=== PATIENT | male | born 1965 | race Caucasian/White ===

== ENCOUNTER → 2016-10-15 | Outpatient (CLI) | payer BC ==
[~2016-10-15] MED LIST: HYDR-3456 PO
== END ==
LOC: CARD 14:58
PROVIDERS: ATTEND Family Medicine
DX: R07.9 Chest pain, unspecified (principal)
CPT/HCPCS: 36415; 84484; 93005

== ENCOUNTER → 2016-12-30 | Outpatient (CLI) | payer BC | LOC: CARD 13:43 | PROVIDERS: ATTEND Internal Medicine Interventional Cardiology | DX: I10 Essential (primary) hypertension (principal); R07.9 Chest pain, unspecified; R06.02 Shortness of breath; M79.89 Other specified soft tissue disorders | CPT/HCPCS: 93306 ==

== ENCOUNTER → 2017-01-13 | Outpatient (CLI) | payer BC ==
[~2017-01-13] VITALS: Ht 175.3 cm; Wt 133.8 kg
[~2017-01-13] MED LIST changes: +CATHETER FLUSH 10 ML SYR IV PRN; +REGADENOSON 0.4 MG/5 ML SYR (LEXISCAN) IV ONE
--- NOTE | 2017-01-15 01:08 | STRESS TEST ---
DATE OF SERVICE: 01/13/2017 PHARMACOLOGICAL NUCLEAR STRESS TEST REPORT PRIMARY PHYSICIAN: Dr. José Miguel Najera. PERFORMING PHYSICIAN: Dr. Clinton Mayorga. INDICATION: Chest pain, hypertension, shortness of breath, swelling of both lower extremities. PROCEDURE IN DETAIL: The patient was brought to the stress lab after informed consent was taken. A stress test was performed according to the standard Lexiscan protocol. A 0.4 mg of IV Lexiscan was given. Low-grade exercise was performed. Baseline EKG showed sinus rhythm at 79 BPM. Blood pressure was 140/91 mmHg. Maximum heart rate was 109 BPM and blood pressure was 172/94 mmHg. There was no chest pain, EKG changes or arrhythmias noted during Lexiscan infusion. 10.21 mCi of Myoview were given for rest imaging and 30.8 mCi of Myoview were given for stress imaging. Myocardial perfusion imaging showed a TID of 1.09, EF of 65%. There is a mild small fixed apical defect. Clinical correlation is recommended. IMPRESSION/CONCLUSION: 1. Pharmacological stress test is negative for ischemia. 2. There is a mild small apical defect, which is likely an artifact considering normal wall motion. However, clinical correlation is recommended. 3. Normal ejection fraction with no wall motion abnormalities. Job ID: [id number] DocumentID: [id number] Dictated Date: 01/14/2017 12:08:59 Software Quality Assurance Analyst Date: 01/14/2017 15:26:58 Dictated By: BEULAH MAYORGA MD
== END ==
LOC: CARD 07:51
PROVIDERS: ATTEND Internal Medicine Interventional Cardiology
DX: R07.9 Chest pain, unspecified (principal); I10 Essential (primary) hypertension; R06.02 Shortness of breath; M79.89 Other specified soft tissue disorders
CPT/HCPCS: 78452; 93017

== ENCOUNTER 2017-01-20 07:10 | Day surgery (SDC) | payer BC ==
[~2017-01-20] VITALS: Ht 175.3 cm; Wt 130.2 kg
[2017-01-20] VITALS (18 sets, daily range): BP systolic 109–138; BP diastolic 72–103
[~2017-01-20 07:10] MED LIST changes: -CATHETER FLUSH 10 ML SYR IV PRN; +HEParin 1000 UNIT/ML (10ML VIAL) FOR BOLUS ONE; +NS IV 1000 ML 3,000 ML ONE; -REGADENOSON 0.4 MG/5 ML SYR (LEXISCAN) IV ONE
--- OUTSIDE RECORDS SUMMARY | 2017-01-20 07:15 | XMS REPORT | Continuity of Care Document ---
Author Author [facility] Organization [facility] Address Unknown Phone Unavailable Allergies Active Description Code Type Severity Reaction Onset Reported/Identified Relationship to Patient Clinical Status Yes codeine [id number] Drug Allergy Severe HIVES 04/11/2013 Medications Problems Date Dx Coded Attending Type Code Diagnosis Diagnosed By 11/03/2012 JOSE SHAW, CONCETTA R Ot 327.23 OBSTRUCTIVE SLEEP APNEA (ADULT) (PEDIATR 04/11/2013 CHAVA SHAW, QASIM A Ot 574.20 CHOLELITHIASIS NOS 04/11/2013 CHAVA SHAW, QASIM A Ot 789.03 ABDOMINAL PAIN, RIGHT LOWER QUADRANT 02/05/2014 CHAVA SHAW, QASIM A Ot 571.8 02/05/2014 HCAVA SHAW, QASIM A Ot 789.00 02/05/2014 CHAVA SHAW, QASIM A Ot 789.00 08/21/2014 CHAVA SHAW, QASIM A Ot 571.8 08/21/2014 CHAVA SHAW, QASIM A Ot 789.00 08/21/2014 CHAVA SHAW, QASIM A Ot 789.00 08/22/2014 CHAVA SHAW, QASIM A Ot 571.8 08/22/2014 CHAVA SHAW, QASIM A Ot 789.00 08/22/2014 CHAVA SHAW, QASIM A Ot 789.00 09/24/2014 JOSE SHAW, CONCETTA R Ot 780.79 09/24/2014 JOSE SHAW, CONCETTA R Ot 784.0 10/04/2014 JOSE SHAW, CONCETTA R Ot 780.2 10/11/2014 CHAVA SHAW, QASIM A Ot 571.8 10/11/2014 CHAVA SHAW, QASIM A Ot 789.00 10/11/2014 CHAVA SHAW, QASIM A Ot 789.00 10/11/2014 JOSE SHAW, CONCETTA R Ot 780.79 10/11/2014 JOSE SHAW, CONCETTA R Ot 784.0 10/11/2014 JOSE SHAW, CONCETTA R Ot 780.2 11/28/2014 CHACE SHAW, SILVINA A Ot 723.1 11/28/2014 CHACE SHAW, SILVINA A Ot 729.5 11/28/2014 CHACE SHAW, SILVINA A Ot 780.4 01/31/2015 CHAVA SHAW, QASIM A Ot 571.8 01/31/2015 CHAVA SHAW, QASIM A Ot 789.00 01/31/2015 CHAVA SHAW, QASIM A Ot 789.00 01/31/2015 JOSE SHAW, CONCETTA R Ot 780.79 01/31/2015 JOSE SHAW, CONCETTA R Ot 784.0 01/31/2015 JOSE SHAW, CONCETTA R Ot 780.2 01/31/2015 CHACE SHAW, SILVINA A Ot 723.1 01/31/2015 CHACE SHAW, SILVINA A Ot 729.5 01/31/2015 CHAEC SHAW, SILVINA A Ot 780.4 06/09/2015 CHAVA SHAW, QASIM A Ot 571.8 06/09/2015 CHAVA SHAW, QASIM A Ot 789.00 06/09/2015 CHAVA SHAW, QASIM A Ot 789.00 06/09/2015 JOSE SHAW, CONCETTA R Ot 780.79 06/09/2015 JOSE SHAW, CONCETTA R Ot 784.0 06/09/2015 JOSE SHAW, CONCETTA R Ot 780.2 06/09/2015 CHACE SHAW, SILVINA A Ot 723.1 06/09/2015 CHACE SHAW, SILVINA A Ot 729.5 06/09/2015 CHACE SHAW, SILVINA A Ot 780.4 07/18/2015 CHAVA SHAW, QASIM A Ot 571.8 CHRONIC LIVER DIS NEC 07/18/2015 CHAVA SHAW, QASIM A Ot 789.00 ABDOMINAL PAIN, UNSPECIFIED SITE 07/18/2015 CHAVA SHAW, QASIM A Ot 789.00 ABDOMINAL PAIN, UNSPECIFIED SITE 07/18/2015 JOSE SHAW, CONCETTA R Ot 780.79 OTH MALAISE FATIGUE 07/18/2015 JOSE SHAW, CONCETTA R Ot 784.0 HEADACHE 07/18/2015 JOSE SHAW, CONCETTA R Ot 780.2 SYNCOPE AND COLLAPSE 07/18/2015 CHACE SHAW, SILVINA A Ot 723.1 CERVICALGIA 07/18/2015 SILVINA MAS MD A Ot 729.5 PAIN IN LIMB 07/18/2015 SILVINA MAS MD A Ot 780.4 DIZZINESS AND GIDDINESS 09/08/2015 CHAVA SHAW, QASIM A Ot 571.8 CHRONIC LIVER DIS NEC 09/08/2015 BARBARA LARSEN MDNT A Ot 789.00 ABDOMINAL PAIN, UNSPECIFIED SITE 09/08/2015 CHAVA SHAW, QASIM A Ot 789.00 ABDOMINAL PAIN, UNSPECIFIED SITE 09/08/2015 ACE GARCIA MDYD R Ot 780.79 OTH MALAISE FATIGUE 09/08/2015 ACE GARCIA MDYD R Ot 784.0 HEADACHE 09/08/2015 ACE GARCIA MDYD R Ot 780.2 SYNCOPE AND COLLAPSE 09/08/2015 SILVINA MAS MD A Ot 723.1 CERVICALGIA 09/08/2015 SILVINA MAS MD A Ot 729.5 PAIN IN LIMB 09/08/2015 SILVINA MAS MD A Ot 780.4 DIZZINESS AND GIDDINESS 10/15/2016 QASIM LARSEN MD A Ot 571.8 CHRONIC LIVER DIS NEC 10/15/2016 QASIM LARSEN MD A Ot 789.00 ABDOMINAL PAIN, UNSPECIFIED SITE 10/15/2016 QASIM LARSEN MD A Ot 789.00 ABDOMINAL PAIN, UNSPECIFIED SITE 10/15/2016 CONCETTA GARCIA MD R Ot 780.79 OTH MALAISE FATIGUE 10/15/2016 ACE GARCIA MDYD R Ot 784.0 HEADACHE 10/15/2016 CONCETTA GARCIA MD R Ot 780.2 SYNCOPE AND COLLAPSE 10/15/2016 SILVINA MAS MD A Ot 723.1 CERVICALGIA 10/15/2016 SILVINA MAS MD A Ot 729.5 PAIN IN LIMB 10/15/2016 SILVINA MAS MD A Ot 780.4 DIZZINESS AND GIDDINESS 10/27/2016 FATOU SHAW, MARY C Ot R07.9 CHEST PAIN, UNSPECIFIED 12/21/2016 QASIM LARSEN MD A Ot 571.8 CHRONIC LIVER DIS NEC 12/21/2016 QASIM LARSEN MD A Ot 789.00 ABDOMINAL PAIN, UNSPECIFIED SITE 12/21/2016 QASIM LARSEN MD A Ot 789.00 ABDOMINAL PAIN, UNSPECIFIED SITE 12/21/2016 CONCETTA GARCIA MD Ot 780.79 OTH MALAISE FATIGUE 12/21/2016 CONCETTA GARCIA MD Ot 784.0 HEADACHE 12/21/2016 CONCETTA GARCIA MD Ot 780.2 SYNCOPE AND COLLAPSE 12/21/2016 SILVINA MAS MD Ot 723.1 CERVICALGIA 12/21/2016 SILVINA MAS MD Ot 729.5 PAIN IN LIMB 12/21/2016 SILVINA MAS MD Ot 780.4 DIZZINESS AND GIDDINESS 12/21/2016 MARY LAINEZ MD Ot R07.9 CHEST PAIN, UNSPECIFIED Procedures Results Encounters ACCT No. Visit Date/Time Discharge Status Pt. Type Provider Facility Loc./Unit Complaint [id number] 12/30/2016 13:43:00 2016 23:59:59 CLS Outpatient Leobardo NEWTON MD [facility] CARD R07.9 [id number] 12/10/2016 13:00:00 2016 23:59:59 CLS Preadmit Leobardo NEWTON MD [facility] CARD R07.9 [id number] 10/15/2016 14:58:00 2016 23:59:59 CLS Outpatient MARY LAINEZ MD [facility] CARD CHEST PAIN [id number] 11/13/2014 14:07:00 2014 23:59:59 CLS Outpatient SILVINA MAS MD [facility] RAD NECK PAIN AND NERVE IMPINGMENT [id number] 09/18/2014 07:21:00 2014 23:59:59 CLS Outpatient CONCETTA GARCIA MD [facility] CARD SYNCOPE,BLACKOUTS [id number] 08/22/2014 07:39:00 2014 23:59:59 CLS Outpatient CONCETTA GARCIA MD [facility] RAD PERSISTENT CAMACHO FRONTAL FATIGUE [id number] 04/17/2013 09:31:00 2013 23:59:59 CLS Outpatient QASIM LARSEN MD [facility] RAD ABNORMAL SONO [id number] 04/16/2013 07:30:00 2013 23:59:59 CLS Outpatient QASIM LARSEN MD [facility] RAD ABD PAIN [id number] 04/11/2013 19:07:00 2013 21:11:00 DIS Emergency QASIM LARSEN MD [facility] ER R SIDE PAIN [id number] 11/02/2012 20:00:00 2012 07:25:00 DIS Outpatient JOSE SHAW, CONCETTA Escamilla [facility] SLEEP EYAD,HYPERSOMNIA
[2017-01-20 07:51] LABS: MEAN PLATELET VOLUME 10.2 FL (7.4-10.4); RED BLOOD COUNT 5.15 10^6/uL (4.35-5.85); RED CELL DISTRIBUTION WIDTH 13.7 % (10.0-14.5); WHITE BLOOD COUNT 6.6 10^3/uL (4.3-11.0)
[2017-01-20] MEDS: NS IV 1000 ML 1,000 ML IV SCH ×3 (07:57→22:08)
[2017-01-20] MEDS ORDERED: NS IV 1000 ML 1,000 ML IV SCH (08:00)
[2017-01-20 08:08] LABS: ALANINE AMINOTRANSFERASE 60 U/L (0-55); ALBUMIN 4.2 GM/DL (3.2-4.5); ANION GAP 12 MMOL/L (5-14); ASPARTATE AMINO TRANSFERASE 34 U/L (5-34); BILIRUBIN,TOTAL 0.6 MG/DL (0.1-1.0); BLOOD UREA NITROGEN 18 MG/DL (7-18); BUN/CREATININE RATIO 15; CALCIUM 9.4 MG/DL (8.5-10.1); CARBON DIOXIDE 21 MMOL/L (21-32); CHLORIDE 105 MMOL/L (98-107); CHOLESTEROL 198 MG/DL (< 200); CREATININE SERUM 1.18 MG/DL (0.60-1.30); DIRECT LDL 127 MG/DL (1-129); GFR ESTIMATED > 60; GLUCOSE 110 MG/DL (70-105); POTASSIUM 4.3 MMOL/L (3.6-5.0); SODIUM 138 MMOL/L (135-145); TOTAL PROTEIN 7.6 GM/DL (6.4-8.2); TRIGLYCERIDES 332 MG/DL (<150); VLDL CHOLESTEROL 66 MG/DL (5-40)
[2017-01-20 08:09] LABS: PROTHROMBIN TIME PATIENT 13.2 SEC (12.2-14.7)
[2017-01-20] MEDS ORDERED: INFLUENZA TRIvalent 2017-2018 0.5 ML/45 MCG SYR IM ONE (08:15)
[2017-01-20] MEDS ORDERED: MIDAZOLAM 5 MG/5 ML (VERSED) VIAL ONE ×2 (09:39→10:39)
[2017-01-20] MEDS ORDERED: VERAPAMIL 5 MG/2 ML (CALAN) VIAL IV ONE (09:40)
[2017-01-20] MEDS ORDERED: fentaNYL INJECTION 100 MCG/2 ML AMP ONE ×2 (09:40→10:39)
[2017-01-20] MEDS ORDERED: NITROGLYCERIN DRIP 25 MG/D5W 250 ML IV ONE (09:40)
[2017-01-20] MEDS ORDERED: diphenhydrAMINE 50 MG/ML INJ (BENADRYL) ONE (09:40)
[2017-01-20] MEDS ORDERED: ADENOSINE 3 MG/1 ML (ADENOSCAN) 30ML VIAL IV ONE (10:31)
[2017-01-20] MEDS ORDERED: HEParin 1000 UNIT/ML (10ML VIAL) FOR BOLUS ONE (10:35)
[2017-01-20] MEDS ORDERED: CLOPIDOGREL 300 MG (PLAVIX) TABLET PO ONE (10:36)
--- NOTE | 2017-01-20 11:39 | Cardiac Procedure Note-CS/ASA ---
Pre-Procedure Note Pre-Op Procedure Note H&P Reviewed The H&P was reviewed, patient examined and no changes noted. Date H&P Reviewed: Jan 20, 2017 Time H&P Reviewed: 09:30 Conscious Sedation Pre-Proced Time Reviewed: 09:30 ASA Class: 3 Airway Mallampati Classification: (king salmon appropriate class) I. II. III, IV Lungs Heart ASA score ASA 1: a normal healthy patient ASA 2: a patient with a mild systemic disease (mid diabetes, controlled hypertension, obesity ASA 3: a patient with a severe systemic disease that limits activity (angina , COPD, prior Myocardial infarction) ASA 4: a patient with an incapacitating disease that is a constant threat to life (CHF, renal failure) ASA 5: a moribund patient not expected to survive 24 hrs. (ruptured aneurysm) ASA 6: a declared brain patient whose organs are being harvested. For emergent operations, add the letter E after the classification Grade 1 Sedation Plan: Analgesia, Amnesia, Plan communicated to team members, Discussed options with patient/fam, Discussed risks with patient/fam Note The patient is an appropriate candidate to undergo the planned procedure, sedation, and anesthesia. The patient immediately re-assessed prior to indication. Leobardo NEWTON MD Jan 20, 2017 11:39 am
--- NOTE | 2017-01-20 11:41 | Cardiology Post Procedure Note ---
Post-Procedure Note Physician (s)/Stacker Attendant (s) Physician Leobardo NEWTON MD Pre-Procedure Diagnosis Pre-Procedure Diagnosis: unstable angina, abnormal nuclear stress test. Post-Procedure Note Procedure Start Date: Jan 20, 2017 Procedure Start Time: 09:30 Name of Procedure: coronary angiography, left heart catheterization, FFR of the RCA, PCI to OM1. Findings/Procedure Note moderate distal RCA/ostial PDA lesion. FFR 0.96; PCI deferred. Severe mid/distal OM1 lesion, treated with drug-eluting stent 2.25x18 mm Xience Alpine. mild diffuse disease in the mid distal LAD. Normal LV function, LVEDP 22 suggesting mild diastolic dysfunction. Anesthesia Type: Conscious Sedation Estimated blood loss (mL): 20 mL Contrast Amount: 218 mL Post-Procedure Diagnosis Post-operative diagnosis: PCI with drug-eluting stent to OM1, FFR to RCA. Leobardo NEWTON MD Jan 20, 2017 11:41 am
[2017-01-20] MEDS ORDERED: PATIENT MAY USE OWN MEDS, ALL PO SCH (11:45)
[2017-01-20] MEDS ORDERED: ASPI-983 PO (13:48)
[2017-01-20] MEDS ORDERED: LOSA100T28 PO (13:48)
[2017-01-20] MEDS: lisINopril 5 MG (PRINIVIL) TABLET PO SCH (14:58)
[2017-01-20] MEDS ORDERED: ATORVASTATIN 80 MG (LIPITOR) TABLET PO SCH (21:00)
--- NOTE | 2017-01-20 21:48 | CARDIAC CATHETERIZATION ---
DATE OF SERVICE: 01/20/2017 CORONARY ANGIOGRAPHY AND PCI REPORT PERFORMING PHYSICIAN: Dr. Clinton Mayorga. INDICATION: Unstable angina, abnormal nuclear stress test. PREOPERATIVE DIAGNOSIS: Unstable angina, abnormal nuclear stress test. POSTOPERATIVE DIAGNOSES: 1. Severe obtuse marginal artery disease treated with a drug-eluting stent. 2. Moderate RCA disease negative by FFR. HISTORY: The patient is a 51-year-old gentleman who has history of hyperlipidemia, hypertension and family history. He presents with recurrent chest pain episodes. A nuclear stress test was performed, which was abnormal. He continued to have recurrent chest pain episodes, which were worsening in intensity. The working diagnosis was unstable angina. He was therefore consented for coronary angiography. PROCEDURE PERFORMED: 1. Coronary angiography. 2. Left heart catheterization. 3. FFR to the RCA. 4. PCI to OM1. SPECIMENS: None. COMPLICATIONS: None. CONTRAST: 218 mL of Omnipaque. ESTIMATED BLOOD LOSS: 20 mL. ANTICOAGULATION: IV heparin. FLUOROSCOPY TIME: 18 minutes. FLUOROSCOPY DOSE: 2264 mGy. PROCEDURE IN DETAIL: The patient was brought to the labor relations specialist after informed consent was taken. All the risks and complications were explained in detail. The patient was draped and prepped in the usual sterile fashion. Access was gained in the right radial artery with a 6-Greek sheath. RCA was engaged with a Winston catheter, left heart catheterization was performed with the Winston catheter. Left coronary system was engaged with a JL4 catheter. FINDINGS: 1. RCA has mild proximal disease. There is a moderate distal RCA/ostial PDA lesion. Stenosis severity is around 50%. 2. Left heart catheterization, LV pressure 107/10 mmHg. LVEDP 22 mmHg. Aortic pressure 107/73 mmHg. Normal LV function. No regional wall motion abnormalities. No gradient across the aortic valve. 3. Patent left main. 4. Mild ostial left circumflex artery disease. Stenosis severity 10-20%. Severe 80-90% stenosis in mid to distal OM1. 5. LAD: There is no significant disease in the proximal LAD. However, there is mild diffuse disease in the mid and distal LAD. The LAD is a transapical vessel. There is a small diagonal artery, which has moderate ostial disease. RECOMMENDATION: 1. FFR to RCA is recommended. 2. PCI to mid/distal OM is recommended. INTERVENTION DETAILS: We gave 5000 of IV heparin, 3000 was given later, total heparin was 8000 units. ACT was over 230 seconds. A 600 mg of bolus Plavix was given. We took a JR4 guide catheter and a pressure wire as guidewire. Baseline FFR was 0.99. Adenosine infusion was started at 140 mcg/kg/minute. Infusion was continued for 2-1/2 minutes. FFR 0.96 was which is normal; therefore, PCI was deferred. The wire was taken out and post-angiography did not reveal any vascular complication. We then took a JL4 guide catheter and a Whisper guidewire. The lesion was crossed with a Whisper wire. We first took a 2.0 x 15 semi-compliant balloon and did balloon angioplasty at 10 atmospheres for 32 seconds. We also gave 100 mcg of intracoronary nitroglycerin. There was no significant improvement in the stenosis severity. We therefore took Xience Alpine 2.25 x 18 drug-eluting stent. It was deployed at 10 atmospheres for 60 seconds. We then took the stent balloon a little bit back and postdilated the proximal and mid section for 14 atmospheres for 19 seconds. The balloon was taken out and angiography still showed the need of postdilatation. We therefore took a NC Quantum 2.5 x 15 balloon and did a postdilatation at 16 atmospheres for 45 seconds. This showed excellent results with no significant residual stenosis. ARIANA flow was ARIANA 2 to 2-1/2 in the beginning and ARIANA 3 at the end. The patient tolerated the procedure well, did not have any complication. IMPRESSION/CONCLUSION: 1. PCI to the OM1 with drug-eluting stent. FFR of the RCA was normal. 2. Aspirin and Plavix for at least a year. Start lisinopril and beta carlos. 3. High dose statin. 4. EKG, electrolytes and CBC in the morning. Hopefully, the patient will be discharged in the morning to follow up in the office in 2-3 weeks. Job ID: [id number] DocumentID: [id number] Dictated Date: 01/20/2017 12:08:01 Sales Service Route Manager Date: 01/20/2017 13:01:42 Dictated By: BEULAH MAYORGA MD
[2017-01-21] VITALS: BP 104/67
[2017-01-21 01:00] VITALS: BP 99/58
[2017-01-21 04:00] VITALS: BP 96/65
[2017-01-21 05:32] LABS: MEAN PLATELET VOLUME 10.1 FL (7.4-10.4); RED BLOOD COUNT 5.08 10^6/uL (4.35-5.85); RED CELL DISTRIBUTION WIDTH 13.8 % (10.0-14.5); WHITE BLOOD COUNT 7.5 10^3/uL (4.3-11.0)
[2017-01-21 05:53] LABS: ANION GAP 9 MMOL/L (5-14); BLOOD UREA NITROGEN 11 MG/DL (7-18); BUN/CREATININE RATIO 10; CARBON DIOXIDE 22 MMOL/L (21-32); CHLORIDE 109 MMOL/L (98-107); CREATININE SERUM 1.06 MG/DL (0.60-1.30); GFR ESTIMATED > 60; GLUCOSE 104 MG/DL (70-105); POTASSIUM 4.3 MMOL/L (3.6-5.0); SODIUM 140 MMOL/L (135-145)
[2017-01-21 08:00] VITALS: BP 115/77
[2017-01-21] MEDS: NS IV 1000 ML 1,000 ML IV SCH ×2 (08:06)
[2017-01-21] MEDS ORDERED: ASPIRIN E.C. 81 MG (ECOTRIN) TAB PO SCH (09:00)
[2017-01-21] MEDS ORDERED: CLOPIDOGREL 75 MG (PLAVIX) TABLET PO SCH (09:00)
[2017-01-21] MEDS ORDERED: ATOR80TA76 PO (09:24)
[2017-01-21] MEDS ORDERED: METO-387 PO (09:24)
[2017-01-21] MEDS ORDERED: CLOP75TA28 PO (09:24)
--- NOTE | 2017-01-21 09:25 | Discharge Inst-Post CATH ---
Discharge Inst-CATH Post Cardiac Cath D/C Inst Follow Up/Plan in one to [address] Mayorga CARDIAC CATH DISCHARGE INSTRUCTIONS *Hold Metformin for 48 hours post heart cath. ACTIVITY * Go Home directly and rest. * Limit activity of the leg (or wrist if it was used) for 7 days including aerobics, swimming, jogging, bicycling, etc. * Restrict stair-climbing for 7 days if possible, if not, climb up with your non -cath leg, then bring together on the same step. * Avoid lifting, pushing, pulling or excessive movement of the affected extremity for 7 days. * Customary sexual activity may be resumed after 2 days-use caution not to use a position that strains or causes pain to the affected extremity. * No driving for 24 hours. * NO SMOKING. * Avoid straining for bowel movements for 7 days. * Gentle walking on level ground is allowed. * Returning to work will depend on the type of procedure and the results. Your doctor will discuss this with you. CALL YOUR DOCTOR FOR ANY OF THE FOLLOWING: *If bleeding from the puncture site occurs- Apply gentle pressure to site with clean cloth and call your doctor or EMS. * If a knot or lump forms under the skin, increases in size, or causes pain. * If bruising appears to be worsening or moving further down your leg instead of disappearing. * Temperature above 101 F. CARE OF YOUR GROIN INCISION; * Bruising or purple discoloration of the skin near the puncture site is common. * You may shower only, no bathtub bathing for 5 days. Be careful to avoid slipping as your leg may feel stiff. * If a closure device was used on your femoral artery, please see the attached guide regarding care of the device and your leg. * REMOVE the dressing from your groin the next day after your procedure in the shower. CARE OF YOUR WRIST INCISION; * Bruising or purple discoloration of the skin near the puncture site is common. * You may shower. * DO NOT submerge wrist. * Remove dressing in 24 hours. Leobardo MAYORGA MD Jan 21, 2017 9:25 am
--- NOTE | 2017-01-21 09:28 | Cardiology Discharge Summary ---
Diagnosis/Chief Complaint Date of Admission 01/20/2017 Date of Discharge 01/21/2017 Admission Diagnosis unstable angina, abnormal nuclear stress test Final/Discharge Diagnosis PCI with drug-eluting stent to OM1, FFR to RCA Chief Complaint/HPI Chief Complaint/HPI 51-year-old gentleman with hypertension, hyperlipidemia and family history of premature CAD. He presents with recurrent worsening chest pain. pharmacological nuclear stress test was performed which was abnormal. Coronary angiography was recommended. Discharge Summary Procedures coronary angiography, left heart catheterization, PCI with drug-eluting stent to OM1, FFR to RCA normal Discharge Physical Examination normal radial pulse, normal cardiac respiratory exam. Hospital Course stable Pending Labs Laboratory Tests 01/21/17 05:15: White Blood Count 7.5, Red Blood Count 5.08, Hemoglobin 16.0, Hematocrit 47, Mean Corpuscular Volume 92, Mean Corpuscular Hemoglobin 32, Mean Corpuscular Hemoglobin Concent 34, Red Cell Distribution Width 13.8, Platelet Count 213, Mean Platelet Volume 10.1, Sodium Level 140, Potassium Level 4.3, Chloride Level 109, Carbon Dioxide Level 22, Anion Gap 9, Blood Urea Nitrogen 11, Creatinine 1.06, Estimat Glomerular Filtration Rate > 60, BUN/Creatinine Ratio 10, Glucose Level 104, Calcium Level 9.0 Discussion & Recommendations Discussion discussed at length with the patient and family. Medical compliance was emphasized. Healthy living was emphasized. I went over coronary angiography and PCI details again with the patient and . I answered all the questions. Discharge took over 30 minutes to complete. Follow up appt.: with Dr. Mayorga in one to 2 weeks. Dicharge Diet: Cardiac Diet Activity as Tolerated: Yes Home Medications Reviewed patient Home Medication Reconciliation Form Discharge Home Medications: Reviewed and agree with Discharge Medication list on patient's Discharge Instruction sheet Condition at discharge stable Instructions to patient/family in one to 2 weeks with Leobardo Tomlinson MD Jan 21, 2017 9:28 am
[2017-01-21] MEDS: lisINopril 5 MG (PRINIVIL) TABLET PO SCH (09:42)
[2017-01-21 10:30] VITALS: BP 120/68
== END 2017-01-21 11:17 | disposition home or self-care (01) ==
LOC: CATH 07:10 → ICU 12:06 → CATH 01-21 11:17
PROVIDERS: ATTEND Internal Medicine Interventional Cardiology
DX: I25.110 Atherosclerotic heart disease of native coronary artery with unstable angina pectoris (principal); I10 Essential (primary) hypertension; Z79.899 Other long term (current) drug therapy
CPT/HCPCS: 36415; 80048; 80053; 80061; 85027; 85347; 85610; 85730; 87081; 93005; 93458; 93571

== ENCOUNTER 2017-05-28 22:30 | Emergency (ER) | payer BC ==
[~2017-05-28] VITALS: Ht 172.7 cm; Wt 131.5 kg
[~2017-05-28 22:30] MED LIST changes: +ASPI-983 PO; +ATOR80TA76 PO; +CLOP75TA28 PO; -HEParin 1000 UNIT/ML (10ML VIAL) FOR BOLUS ONE; +LOSA100T28 PO; +METO-387 PO; -NS IV 1000 ML 3,000 ML ONE
[2017-05-28 23:00] VITALS: BP 145/85
[2017-05-28] MEDS ORDERED: LACTATED RINGERS 1,000 ML IV ONE (23:12)
[2017-05-28] MEDS ORDERED: RT-ALBUTEROL/IPRATROPIUM 3 ML (DUONEB) VIAL INH ONE (23:15)
[2017-05-28] MEDS ORDERED: ACETAMINOPHEN 500 MG TAB (TYLENOL) PO ONE (23:15)
--- NOTE | 2017-05-28 23:26 | ED Respiratory ---
General Chief Complaint: Cough/Cold/Flu Symptoms Stated Complaint: CONGESTED,COUGH Nursing Triage Note: PT REPORTS COUGH/CONGESTION/FEVER X 1 WEEK. HE STATES HE WAS TX WITH STEROID, Z PACK, AND TESSALON PEARLES BY HIS PCP WITH NO IMPROVEMENT. Source: patient, spouse Exam Limitations: no limitations History of Present Illness Date Seen by Provider: May 28, 2017 Time Seen by Provider: 23:17 Initial Comments Patient resists ER with significant other and a chief complaint that he is had about a week now of upper respiratory cold like symptoms, dry nonproductive cough that he cannot get over. He did a Z-Juan from his doctor as well as had some Tessalon Perles that have not helped much with the cough. He has now allergy to codeine. He is on Plavix for recovery of heart stents. He's not had any chest pain shortness of breath just very weak and tired last 2-3 days not wanting to get out of bed. He's had sweats and chills but no objective fever. He 's been using Tylenol or Motrin his last dose of Tylenol was yesterday. No history of COPD, asthma or smoking however his significant other does smoke. Allergies and Home Medications Allergies Coded Allergies: codeine (Verified Allergy, Severe, HIVES, 04/11/13) Home Medications Aspirin 81 Mg Tablet.dr, 81 MG PO DAILY, (Reported) Atorvastatin Calcium 80 Mg Tablet, 40 MG PO HS Prescribed by: Leobardo NEWTON on 01/21/17923 Clopidogrel Bisulfate 75 Mg Tablet, 75 MG PO DAILY Prescribed by: Leobardo NEWTON on 01/21/17923 Losartan Potassium 100 Mg Tablet, 100 MG PO DAILY, (Reported) Metoprolol Succinate 25 Mg Tab.er.24h, 50 MG PO DAILY Prescribed by: Leobardo NEWTON on 01/21/17923 Patient Home Medication List Home Medication List Reviewed: Yes Constitutional: chills, diaphoresis, No fever, malaise, weakness EENTM: ear pain (left), No hearing loss, No blurred vision, No double vision Respiratory: cough, No phlegm, No short of breath, wheezing Cardiovascular: No chest pain, No palpitations Gastrointestinal: No abdominal pain, No constipation, No diarrhea, No nausea Genitourinary: No discharge, No dysuria Past Yjwuvdo-Sqsfeb-Szrqqm Hx Patient Social History Alcohol Use: Occasionally Uses Recreational Drug Use: No Smoking Status: Never a Smoker 2nd Hand Smoke Exposure: Yes Recent Foreign Travel: No Contact w/Someone Who Travel: No Recent Infectious Disease Expo: No Surgeries History of Surgeries: Yes (HERNIA X2, ESOPHAGUS STRETCHING) Surgeries: Orthopedic Respiratory History of Respiratory Disorde: Yes (CPAP) Respiratory Disorders: Sleep Apnea Cardiovascular History of Cardiac Disorders: Yes (STENTS) Cardiac Disorders: High Cholesterol, Hypertension Neurological History of Neurological Disord: No Gastrointestinal History of Gastrointestinal Di: Yes Gastrointestinal Disorders: Gastroesophageal Reflux Musculoskeletal History of Musculoskeletal Dis: No Endocrine History of Endocrine Disorders: No Cancer History of Cancer: No Psychosocial History of Psychiatric Problem: No Integumentary History of Skin or Integumenta: No Blood Transfusions History of Blood Disorders: No Adverse Reaction to a Blood Tr: No Physical Exam Vital Signs Vital Signs - First Documented 05/28/17 23:00 Temp 97.5 Pulse 70 Resp 16 B/P (MAP) 145/85 (105) Pulse Ox 97 O2 Delivery Room Air Capillary Refill : Less Than 3 Seconds General Appearance: WD/WN, mild distress Eyes: Bilateral Eye Normal Inspection, Bilateral Eye PERRL, Bilateral Eye EOMI HEENT: PERRL/EOMI, normal ENT inspection, pharynx normal, TM abnormal (R) (dull , opaque, nonerythematous, nontender with mucoid effusion), TM abnormal (L) ( without exudate sure his ears were mixed up) Respiratory: chest non-tender, no respiratory distress, no accessory muscle use , wheezing (left side predominantly) Cardiovascular: normal peripheral pulses, no edema Gastrointestinal: normal bowel sounds, non tender, soft Extremities: no calf tenderness, normal capillary refill Neurologic/Psychiatric: alert, oriented x 3 Skin: normal color, warm/dry Progress/Results/Core Measures Suspected Sepsis Recent Fever Within 48 Hours: No Infection Criteria Present: None New/Unexplained Altered Menta: No Sepsis Screen: No Definite Risk Sepsis Diagnosis: SIRS Temperature:97.5 Pulse: 70 Respiratory Rate: 16 Laboratory Tests 05/28/17 23:20: White Blood Count 5.2 Blood Pressure 145 /85 Mean: 105 Laboratory Tests 05/28/17 23:20: Creatinine 1.06, Platelet Count 190, Total Bilirubin 0.4 Results/Orders Lab Results Laboratory Tests Test 05/28/17 23:20 Range/Units White Blood Count 5.2 4.3-11.0 10^3/uL Red Blood Count 4.92 4.35-5.85 10^6/uL Hemoglobin 15.6 13.3-17.7 G/DL Hematocrit 44 40-54 % Mean Corpuscular Volume 89 80-99 FL Mean Corpuscular Hemoglobin 32 25-34 PG Mean Corpuscular Hemoglobin Concent 36 32-36 G/DL Red Cell Distribution Width 13.7 10.0-14.5 % Platelet Count 190 130-400 10^3/uL Mean Platelet Volume 10.2 7.4-10.4 FL Neutrophils (%) (Auto) 61 42-75 % Lymphocytes (%) (Auto) 24 12-44 % Monocytes (%) (Auto) 15 H 0-12 % Eosinophils (%) (Auto) 1 0-10 % Basophils (%) (Auto) 0 0-10 % Neutrophils # (Auto) 3.2 1.8-7.8 X 10^3 Lymphocytes # (Auto) 1.2 1.0-4.0 X 10^3 Monocytes # (Auto) 0.8 0.0-1.0 X 10^3 Eosinophils # (Auto) 0.0 0.0-0.3 10^3/uL Basophils # (Auto) 0.0 0.0-0.1 10^3/uL Sodium Level 138 135-145 MMOL/L Potassium Level 3.7 3.6-5.0 MMOL/L Chloride Level 108 H 98-107 MMOL/L Carbon Dioxide Level 20 L 21-32 MMOL/L Anion Gap 10 5-14 MMOL/L Blood Urea Nitrogen 13 7-18 MG/DL Creatinine 1.06 0.60-1.30 MG/DL Estimat Glomerular Filtration Rate > 60 BUN/Creatinine Ratio 12 Glucose Level 101 70-105 MG/DL Calcium Level 8.6 8.5-10.1 MG/DL Total Bilirubin 0.4 0.1-1.0 MG/DL Aspartate Amino Transf (AST/SGOT) 22 5-34 U/L Alanine Aminotransferase (ALT/SGPT) 51 0-55 U/L Alkaline Phosphatase 52 40-136 U/L C-Reactive Protein High Sensitivity 0.96 H 0.00-0.50 MG/DL Total Protein 6.2 L 6.4-8.2 GM/DL Albumin 3.6 3.2-4.5 GM/DL Micro Results Microbiology 05/28/17 Influenza Types A,B Antigen (ROVERTO) - Final, Complete My Orders Orders - [facility] Cbc With Automated Diff (05/28/17 23:12) Comprehensive Metabolic Panel (05/28/17 23:12) Hs C Reactive Protein (05/28/17 23:12) Influenza A And B Antigens (05/28/17 23:12) Albuterol/Ipra Inhalation Soln (Duoneb I (05/28/17 23:15) Saline Lock/Iv-Start (05/28/17 23:12) Lactated Ringers (Lr 1000 Ml Iv Solution (05/28/17 23:12) Chest Pa/Lat (2 View) (05/28/17 23:12) Svn Sm Volume Nebulizer Rt-Rfs (05/28/17 23:12) Acetaminophen Tablet (Tylenol Tablet) (05/28/17 23:15) Medications Given in ED Current Medications Medications Dose Ordered Sig/Shruthi Route Start Time Stop Time Status Last Admin Dose Admin Acetaminophen 1,000 mg ONCE ONCE PO 05/28/17 23:15 05/28/17 23:21 DC 05/28/17 23:40 1,000 MG Albuterol/ Ipratropium 3 ml ONCE ONCE INH 05/28/17 23:15 05/28/17 23:21 DC 05/28/17 23:35 3 ML Lactated Ringer's 1,000 ml @ 0 mls/hr Q0M ONCE IV 05/28/17 23:12 05/28/17 23:21 DC 05/28/17 23:40 0 MLS/HR Vital Signs/I&O Vital Sign - Last 12Hours 05/28/17 05/28/17 05/28/17 23:00 23:00 23:35 Temp 97.5 Pulse 70 Resp 16 B/P (MAP) 145/85 (105) Pulse Ox 97 97 O2 Delivery Room Air Room Air Room Air Capillary Refill : Less Than 3 Seconds Blood Pressure Mean: 105 Progress Note #1: Time: 23:25 Progress Note Coughing may be due to his wheezing and bronchospasm. Differential includes pneumonia versus bronchitis versus influenza. Progress Note #2: Time: 00:45 Progress Note Patient has influenza and a lot of wheezing and reactive airway disease with questionable infiltrate on chest x-ray. He has already had azithromycin which he just completed so we will go ahead and add some Omnicef to catch the more common organisms might be causing a pneumonia. He is outside the window for Tamiflu. We will send some albuterol pharmacy since he Cipriano has a nebulizer that his uses at home. Diagnostic Imaging Diagonstic Imaging: Xray (2v) Plain Films/CT/US/NM/MRI: chest Comments Questionable subtle left lower lobe infiltrate. Reviewed: Reviewed by Me Departure Impression Impression: Primary Impression: Influenza Additional Impression: Pneumonia Qualified Codes: J18.1 - Lobar pneumonia, unspecified organism Disposition: HOME, SELF-CARE Condition: Improved Departure-Patient Inst. Decision time for Depature: 00:46 Referrals: MARY LAINEZ MD (PCP/Family) Primary Care Physician Patient Instructions: Flu, Adult (DC) Add. Discharge Instructions: Use the albuterol every 4 hours if you're having shortness of breath, wheezing, coughing fits. You can also use the other medications that were prescribed you. In addition start the Omnicef one capsule twice a day for 10 days. Follow-up with your primary care physician if you're not feeling improvement towards the end of the Omnicef. Wear a mask if you have to go in to public. Use ibuprofen 800 mg every 8 hours and Tylenol 1000 mg every 6 hours for body aches, chills, fever. All discharge instructions reviewed with patient and/or family. Voiced understanding. Scripts Albuterol Sulfate (Albuterol Sulfate) 2.5 Mg/3 Ml Vial.neb 2.5 MG IH Q4H Y for SHORTNESS OF BREATH, #60 EA 0 Refills Prov: [facility] 05/29/17 Cefdinir (Cefdinir) 300 Mg Capsule 300 MG PO BID for 10 Days, #20 CAP 0 Refills Prov: [facility] 05/29/17 Work/School Note: Work Release Form Date Seen in the Emergency Department: May 29, 2017 Return to Work: Jun 06, 2017 Restrictions: No Restrictions Copy Copies To 1: MARY LAINEZ MD, TITUS J May 28, 2017 23:26
[2017-05-28 23:34] LABS: BASOPHILS % (AUTO) 0 % (0-10); EOSINOPHILS % (AUTO) 1 % (0-10); HEMATOCRIT 44 % (40-54); HEMOGLOBIN 15.6 G/DL (13.3-17.7); LYMPHOCYTES # (AUTO) 1.2 X 10^3 (1.0-4.0); LYMPHOCYTES % (AUTO) 24 % (12-44); MEAN CORPUSCULAR HEMOGLOBIN 32 PG (25-34); MEAN CORPUSCULAR HGB CONC 36 G/DL (32-36); MEAN CORPUSCULAR VOLUME 89 FL (80-99); MEAN PLATELET VOLUME 10.2 FL (7.4-10.4); MONOCYTES # (AUTO) 0.8 X 10^3 (0.0-1.0); MONOCYTES % (AUTO) 15 % (0-12); NEUTROPHILS # (AUTO) 3.2 X 10^3 (1.8-7.8); NEUTROPHILS % (AUTO) 61 % (42-75); PLATELET COUNT 190 10^3/uL (130-400); RED BLOOD COUNT 4.92 10^6/uL (4.35-5.85); RED CELL DISTRIBUTION WIDTH 13.7 % (10.0-14.5); WHITE BLOOD COUNT 5.2 10^3/uL (4.3-11.0)
[2017-05-28 23:50] LABS: ALANINE AMINOTRANSFERASE 51 U/L (0-55); ALBUMIN 3.6 GM/DL (3.2-4.5); ALKALINE PHOSPHATASE 52 U/L (40-136); BILIRUBIN,TOTAL 0.4 MG/DL (0.1-1.0); BUN/CREATININE RATIO 12; CALCIUM 8.6 MG/DL (8.5-10.1); CARBON DIOXIDE 20 MMOL/L (21-32); CHLORIDE 108 MMOL/L (98-107); CREATININE SERUM 1.06 MG/DL (0.60-1.30); GFR ESTIMATED > 60; GLUCOSE 101 MG/DL (70-105); POTASSIUM 3.7 MMOL/L (3.6-5.0); SODIUM 138 MMOL/L (135-145); TOTAL PROTEIN 6.2 GM/DL (6.4-8.2)
[2017-05-29] MEDS ORDERED: CEFD300C3 PO (00:49)
[2017-05-29] MEDS ORDERED: ALBU2.5V4 IH (00:49)
--- NOTE | 2017-05-29 07:49 | Diagnostic Imaging Report ---
INDICATION: Cough. COMPARISON: None available. TECHNIQUE: 2 radiographs of the chest dated 05/29/2017. FINDINGS: Cardiac silhouette is within normal limits. No significant pulmonary vascular congestion. No focal infiltrate, pleural effusion, or pneumothorax. No acute osseous abnormality. IMPRESSION: No acute cardiopulmonary abnormality. Dictated by: Dictated on workstation # [id number]
== END 2017-05-29 00:49 | disposition home or self-care (01) ==
LOC: EDUNIT# 22:30 → ER 22:31
DX: J11.00 Influenza due to unidentified influenza virus with unspecified type of pneumonia (principal); K21.9 Gastro-esophageal reflux disease without esophagitis; E78.00 Pure hypercholesterolemia, unspecified; I10 Essential (primary) hypertension; G47.30 Sleep apnea, unspecified; Z95.5 Presence of coronary angioplasty implant and graft; Z77.22 Contact with and (suspected) exposure to environmental tobacco smoke (acute) (chronic); Z79.82 Long term (current) use of aspirin; Z88.5 Allergy status to narcotic agent; Z79.02 Long term (current) use of antithrombotics/antiplatelets
CPT/HCPCS: 36415; 71046; 80053; 85025; 86141; 87804; 94640; 94664; 99282

== ENCOUNTER 2017-06-17 05:53 | Outpatient (CLI) | payer BC ==
[~2017-06-17] VITALS: Ht 172.7 cm; Wt 128.4 kg
[~2017-06-17 05:53] MED LIST changes: +ALBU2.5V4 IH; +CEFD300C3 PO
[2017-06-17] MEDS ORDERED: CLOP75TA28 PO (09:27)
[2017-06-17] MEDS ORDERED: METO-387 PO (09:27)
[2017-06-17] MEDS ORDERED: ATOR80TA76 PO (09:27)
== END 2017-06-17 09:31 ==
LOC: PREOP 05:53
PROVIDERS: ATTEND Surgery
DX: Z01.818 Encounter for other preprocedural examination (principal); K42.9 Umbilical hernia without obstruction or gangrene

== ENCOUNTER 2017-06-22 11:17 | Day surgery (SDC) | payer BC ==
[~2017-06-22] VITALS: Ht 172.7 cm; Wt 128.4 kg
--- OUTSIDE RECORDS SUMMARY | 2017-06-22 11:27 | XMS REPORT | Continuity of Care Document ---
Author Author [facility] Organization [facility] Address Unknown Phone Unavailable Allergies Active Description Code Type Severity Reaction Onset Reported/Identified Relationship to Patient Clinical Status Yes codeine [id number] Drug Allergy Severe HIVES 04/11/2013 Medications There is no data. Problems Date Dx Coded Attending Type Code Diagnosis Diagnosed By 11/03/2012 JOSE SHAW, CONCETTA R Ot 327.23 OBSTRUCTIVE SLEEP APNEA (ADULT) (PEDIATR 04/11/2013 CHAVA SHAW, QASIM A Ot 574.20 CHOLELITHIASIS NOS 04/11/2013 CHAVA SHAW, QASIM A Ot 789.03 ABDOMINAL PAIN, RIGHT LOWER QUADRANT 02/05/2014 CHAVA SHAW, QASIM A Ot 571.8 02/05/2014 CHAVA SHAW, QASIM A Ot 789.00 02/05/2014 CHAVA [...] CHACE SHAW, SILVINA A Ot 729.5 01/31/2015 CHACE SHAW, SILVINA A Ot 780.4 06/09/2015 CHAVA [...] A Ot 780.4 DIZZINESS AND GIDDINESS 09/08/2015 QASIM LARSEN MD A Ot 571.8 CHRONIC LIVER DIS NEC 09/08/2015 QASIM LARSEN MD A Ot 789.00 ABDOMINAL PAIN, UNSPECIFIED SITE 09/08/2015 CHAVA SHAW, QASIM A Ot 789.00 ABDOMINAL PAIN, UNSPECIFIED SITE 09/08/2015 CONCETTA GARCIA MD R Ot 780.79 OTH MALAISE FATIGUE 09/08/2015 JOSE SHAW, CONCETTA R Ot 784.0 HEADACHE 09/08/2015 ACE GARCIA MDYD R Ot 780.2 SYNCOPE AND COLLAPSE 09/08/2015 SILVINA MAS MD A Ot 723.1 CERVICALGIA 09/08/2015 SILVINA MAS MD A Ot 729.5 PAIN IN LIMB 09/08/2015 SILVINA MAS MD A Ot 780.4 DIZZINESS AND GIDDINESS 10/15/2016 QASIM LARSEN MD Ot 571.8 CHRONIC LIVER DIS NEC 10/15/2016 QASIM LARSEN MD A Ot 789.00 ABDOMINAL PAIN, UNSPECIFIED SITE 10/15/2016 QASIM LARSEN MD A Ot 789.00 ABDOMINAL PAIN, UNSPECIFIED SITE 10/15/2016 CONCETTA GARCIA MD R Ot 780.79 OTH MALAISE FATIGUE 10/15/2016 ACE GARCIA MDYD R Ot 784.0 HEADACHE 10/15/2016 ACE GARCIA MDYD R Ot 780.2 SYNCOPE AND COLLAPSE 10/15/2016 [...] Ot 789.00 ABDOMINAL PAIN, UNSPECIFIED SITE 12/21/2016 JOSE SHAW, CONCETTA R Ot 780.79 OTH MALAISE FATIGUE 12/21/2016 JOSE SHAW, CONCETTA R Ot 784.0 HEADACHE 12/21/2016 CONCETTA GARCIA MD R Ot 780.2 SYNCOPE AND COLLAPSE 12/21/2016 SILVINA MAS MD Ot 723.1 CERVICALGIA 12/21/2016 SILVINA MAS MD Ot 729.5 PAIN IN LIMB 12/21/2016 SILVINA MAS MD Ot 780.4 DIZZINESS AND GIDDINESS 12/21/2016 FATOU SHAW, MARY Natarajan Ot R07.9 CHEST PAIN, UNSPECIFIED 01/21/2017 Leobardo NEWTON MD Ot I10 ESSENTIAL (PRIMARY) HYPERTENSION 01/21/2017 Leobardo NEWTON MD Ot I25.110 ATHSCL HEART DISEASE OF [place] ART W 01/21/2017 Leobardo NEWTON MD Ot Z79.899 OTHER [facility] (CURRENT) DRUG THERAPY 01/27/2017 Leobardo NEWTON MD Ot I10 ESSENTIAL (PRIMARY) HYPERTENSION 01/27/2017 Leobardo NEWTON MD Ot M79.89 OTHER SPECIFIED SOFT TISSUE DISORDERS 01/27/2017 Leobardo NEWTON MD Ot R06.02 SHORTNESS OF BREATH 01/27/2017 Leobardo NEWTON MD Ot R07.9 CHEST PAIN, UNSPECIFIED 01/27/2017 Leobardo NEWTON MD Ot I10 ESSENTIAL (PRIMARY) HYPERTENSION 01/27/2017 Leobardo NEWTON MD Ot M79.89 OTHER SPECIFIED SOFT TISSUE DISORDERS 01/27/2017 Leobardo NEWTON MD Ot R06.02 SHORTNESS OF BREATH 01/27/2017 Leobardo NEWTON MD Ot R07.9 CHEST PAIN, UNSPECIFIED 02/03/2017 Leobardo NEWTON MD Ot I10 ESSENTIAL (PRIMARY) HYPERTENSION 02/03/2017 Leobardo NEWTON MD Ot I25.110 ATHSCL HEART DISEASE OF [place] ART W 02/03/2017 Leobardo NEWTON MD Ot Z79.899 OTHER [facility] (CURRENT) DRUG THERAPY 03/11/2017 Leobardo NEWTON MD Ot I10 ESSENTIAL (PRIMARY) HYPERTENSION 03/11/2017 LAMAR SHAW, Leobardo CARLSON Ot I25.110 ATHSCL HEART DISEASE OF [place] ART W 03/11/2017 Leobarod NEWTON MD Ot Z79.899 OTHER [employer] (CURRENT) DRUG THERAPY 05/28/2017 CHAVA SHAW, QASIM A Ot 571.8 CHRONIC LIVER DIS NEC 05/28/2017 CHAVA SHAW, QASIM A Ot 789.00 ABDOMINAL PAIN, UNSPECIFIED SITE 05/28/2017 CHAVA SHAW, QASIM A Ot 789.00 ABDOMINAL PAIN, UNSPECIFIED SITE 05/28/2017 JOSE SHAW, CONCETTA R Ot 780.79 OTH MALAISE FATIGUE 05/28/2017 JOSE SHAW, CONCETTA R Ot 784.0 HEADACHE 05/28/2017 JOSE SHAW, CONCETTA R Ot 780.2 SYNCOPE AND COLLAPSE 05/28/2017 CHACE SHAW, SILVINA Jones Ot 723.1 CERVICALGIA 05/28/2017 CHACE SHAW, SILVINA A Ot 729.5 PAIN IN LIMB 05/28/2017 CHACE SHAW, SILVINA A Ot 780.4 DIZZINESS AND GIDDINESS 05/28/2017 FATOU SHAW, MARY Natarajan Ot R07.9 CHEST PAIN, UNSPECIFIED 05/28/2017 Leobardo NEWTON MD Ot I10 ESSENTIAL (PRIMARY) HYPERTENSION 05/28/2017 Leobardo NEWTON MD Ot M79.89 OTHER SPECIFIED SOFT TISSUE DISORDERS 05/28/2017 Leobardo NEWTON MD Ot R06.02 SHORTNESS OF BREATH 05/28/2017 Leobardo NEWTON MD Ot R07.9 CHEST PAIN, UNSPECIFIED 05/28/2017 Leobardo NEWTON MD Ot I10 ESSENTIAL (PRIMARY) HYPERTENSION 05/28/2017 Leobardo NEWTON MD Ot M79.89 OTHER SPECIFIED SOFT TISSUE DISORDERS 05/28/2017 Leobardo NEWTON MD Ot R06.02 SHORTNESS OF BREATH 05/28/2017 Leobardo NEWTON MD Ot R07.9 CHEST PAIN, UNSPECIFIED 05/30/2017 TAURUS SHAW, CHI Myles Ot E78.00 PURE HYPERCHOLESTEROLEMIA, UNSPECIFIED 05/30/2017 CHI CONDON MD, Ot G47.30 SLEEP APNEA, UNSPECIFIED 05/30/2017 CHI CONDON MD Ot I10 ESSENTIAL (PRIMARY) HYPERTENSION 05/30/2017 CHI CONDON MD, Ot J11.00 FLU DUE TO UNIDENTIFIED FLU VIRUS W UNSP 05/30/2017 CHI CONDON MD, Ot K21.9 GASTRO-ESOPHAGEAL REFLUX DISEASE WITHOUT 05/30/2017 CHI CONDON MD, Ot R09.81 NASAL CONGESTION 05/30/2017 CHI CONDON MD, Ot Z77.22 CNTCT W AND EXPSR TO ENVIRON TOBACCO SMO 05/30/2017 CHI CONDON MD, Ot Z79.02 [employer] (CURRENT) USE OF ANTITHROMBOTI 05/30/2017 CHI CONDON MD, Ot Z79.82 [employer] (CURRENT) USE OF ASPIRIN 05/30/2017 CHI CONDON MD, Ot Z88.5 ALLERGY STATUS TO NARCOTIC AGENT STATUS 05/30/2017 CHI CONDON MD, Ot Z95.5 PRESENCE OF CORONARY ANGIOPLASTY IMPLANT Procedures There is no data. Results Test Result Range Automated blood complete blood count (hemogram) panel - 01/20/17 07:28 Blood leukocytes automated count (number/volume) 6.6 10*3/uL 4.3-11.0 Blood erythrocytes automated count (number/volume) 5.15 10*6/uL 4.35-5.85 Venous blood hemoglobin measurement (mass/volume) 16.1 g/dL 13.3-17.7 Blood hematocrit (volume fraction) 47 % 40-54 Automated erythrocyte mean corpuscular volume 92 [foz_us] 80-99 Automated erythrocyte mean corpuscular hemoglobin (mass per erythrocyte) 31 pg 25-34 Automated erythrocyte mean corpuscular hemoglobin concentration measurement ( mass/volume) 34 g/dL 32-36 Automated erythrocyte distribution width ratio 13.7 % 10.0-14.5 Automated blood platelet count (count/volume) 246 10*3/uL 130-400 Automated blood platelet mean volume measurement 10.2 [foz_us] 7.4-10.4 Comprehensive metabolic panel - 01/20/17 07:28 Serum or plasma sodium measurement (moles/volume) 138 mmol/L 135-145 Serum or plasma potassium measurement (moles/volume) 4.3 mmol/L 3.6-5.0 Serum or plasma chloride measurement (moles/volume) 105 mmol/L 98-107 Carbon dioxide 21 mmol/L 21-32 Serum or plasma anion gap determination (moles/volume) 12 mmol/L 5-14 Serum or plasma urea nitrogen measurement (mass/volume) 18 mg/dL 7-18 Serum or plasma creatinine measurement (mass/volume) 1.18 mg/dL 0.60-1.30 Serum or plasma urea nitrogen/creatinine mass ratio 15 NRG Serum or plasma creatinine measurement with calculation of estimated glomerular filtration rate > NRG Serum or plasma glucose measurement (mass/volume) 110 mg/dL 70-105 Serum or plasma calcium measurement (mass/volume) 9.4 mg/dL 8.5-10.1 Serum or plasma total bilirubin measurement (mass/volume) 0.6 mg/dL 0.1-1.0 Serum or plasma alkaline phosphatase measurement (enzymatic activity/volume) 51 U/L 40-136 Serum or plasma aspartate aminotransferase measurement (enzymatic activity/ volume) 34 U/L 5-34 Serum or plasma alanine aminotransferase measurement (enzymatic activity/volume ) 60 U/L 0-55 Serum or plasma protein measurement (mass/volume) 7.6 g/dL 6.4-8.2 Serum or plasma albumin measurement (mass/volume) 4.2 g/dL 3.2-4.5 Lipid 1996 panel - 01/20/17 07:28 Serum or plasma triglyceride measurement (mass/volume) 332 mg/dL <150 Serum or plasma cholesterol measurement (mass/volume) 198 mg/dL < 200 Serum or plasma cholesterol in HDL measurement (mass/volume) 33 mg/ dL 40-60 Cholesterol in LDL [mass/volume] in serum or plasma by direct assay 127 mg/dL 1-129 Serum or plasma cholesterol in VLDL measurement (mass/volume) 66 mg/ dL 5-40 PT panel in platelet poor plasma by coagulation assay - 01/20/17 07:28 Prothrombin time (PT) in platelet poor plasma by coagulation assay 13.2 s 12.2-14.7 INR in platelet poor plasma or blood by coagulation assay 1.0 0.8-1.4 Activated partial thromboplastin time (aPTT) in platelet poor plasma bycoagulation assay - 01/20/17 07:28 Activated partial thromboplastin time (aPTT) in platelet poor plasma bycoagulation assay 29 s 24-35 Methicillin resistant Staphylococcus aureus (MRSA) screening culture - 07:28 Methicillin resistant Staphylococcus aureus (MRSA) screening culture NEG [facility] Automated blood complete blood count (hemogram) panel - 01/21/17 05:15 Blood leukocytes automated count (number/volume) 7.5 10*3/uL 4.3-11.0 Blood erythrocytes automated count (number/volume) 5.08 10*6/uL 4.35-5.85 Venous blood hemoglobin measurement (mass/volume) 16.0 g/dL 13.3-17.7 Blood hematocrit (volume fraction) 47 % 40-54 Automated erythrocyte mean corpuscular volume 92 [foz_us] 80-99 Automated erythrocyte mean corpuscular hemoglobin (mass per erythrocyte) 32 pg 25-34 Automated erythrocyte mean corpuscular hemoglobin concentration measurement ( mass/volume) 34 g/dL 32-36 Automated erythrocyte distribution width ratio 13.8 % 10.0-14.5 Automated blood platelet count (count/volume) 213 10*3/uL 130-400 Automated blood platelet mean volume measurement 10.1 [foz_us] 7.4-10.4 Whole blood basic metabolic panel - 01/21/17 05:15 Serum or plasma sodium measurement (moles/volume) 140 mmol/L 135-145 Serum or plasma potassium measurement (moles/volume) 4.3 mmol/L 3.6-5.0 Serum or plasma chloride measurement (moles/volume) 109 mmol/L 98-107 Carbon dioxide 22 mmol/L 21-32 Serum or plasma anion gap determination (moles/volume) 9 mmol/L 5-14 Serum or plasma urea nitrogen measurement (mass/volume) 11 mg/dL 7-18 Serum or plasma creatinine measurement (mass/volume) 1.06 mg/dL 0.60-1.30 Serum or plasma urea nitrogen/creatinine mass ratio 10 NRG Serum or plasma creatinine measurement with calculation of estimated glomerular filtration rate > [facility] Serum or plasma glucose measurement (mass/volume) 104 mg/dL 70-105 Serum or plasma calcium measurement (mass/volume) 9.0 mg/dL 8.5-10.1 Influenza virus A and B antigen detection - 05/28/17 23:13 CALL POSITIVES (F1 HELP) CALLED TO [place] AT [phone] [facility] FLU RESULT POSITIVE FOR INFLUENZA B ANTIGEN, NEG FOR A ANTIGEN, BY [facility] Complete blood count (CBC) with automated white blood cell (WBC) differential - 05/28/17 23:20 Blood leukocytes automated count (number/volume) 5.2 10*3/uL 4.3-11.0 Blood erythrocytes automated count (number/volume) 4.92 10*6/uL 4.35-5.85 Venous blood hemoglobin measurement (mass/volume) 15.6 g/dL 13.3-17.7 Blood hematocrit (volume fraction) 44 % 40-54 Automated erythrocyte mean corpuscular volume 89 [foz_us] 80-99 Automated erythrocyte mean corpuscular hemoglobin (mass per erythrocyte) 32 pg 25-34 Automated erythrocyte mean corpuscular hemoglobin concentration measurement ( mass/volume) 36 g/dL 32-36 Automated erythrocyte distribution width ratio 13.7 % 10.0-14.5 Automated blood platelet count (count/volume) 190 10*3/uL 130-400 Automated blood platelet mean volume measurement 10.2 [foz_us] 7.4-10.4 Automated blood neutrophils/100 leukocytes 61 % 42-75 Automated blood lymphocytes/100 leukocytes 24 % 12-44 Blood monocytes/100 leukocytes 15 % 0-12 Automated blood eosinophils/100 leukocytes 1 % 0-10 Automated blood basophils/100 leukocytes 0 % 0-10 Blood neutrophils automated count (number/volume) 3.2 10*3 1.8-7.8 Blood lymphocytes automated count (number/volume) 1.2 10*3 1.0-4.0 Blood monocytes automated count (number/volume) 0.8 10*3 0.0-1.0 Automated eosinophil count 0.0 10*3/uL 0.0-0.3 Automated blood basophil count (count/volume) 0.0 10*3/uL 0.0-0.1 Comprehensive metabolic panel - 05/28/17 23:20 Serum or plasma sodium measurement (moles/volume) 138 mmol/L 135-145 Serum or plasma potassium measurement (moles/volume) 3.7 mmol/L 3.6-5.0 Serum or plasma chloride measurement (moles/volume) 108 mmol/L 98-107 Carbon dioxide 20 mmol/L 21-32 Serum or plasma anion gap determination (moles/volume) 10 mmol/L 5-14 Serum or plasma urea nitrogen measurement (mass/volume) 13 mg/dL 7-18 Serum or plasma creatinine measurement (mass/volume) 1.06 mg/dL 0.60-1.30 Serum or plasma urea nitrogen/creatinine mass ratio 12 NRG Serum or plasma creatinine measurement with calculation of estimated glomerular filtration rate > NRG Serum or plasma glucose measurement (mass/volume) 101 mg/dL 70-105 Serum or plasma calcium measurement (mass/volume) 8.6 mg/dL 8.5-10.1 Serum or plasma total bilirubin measurement (mass/volume) 0.4 mg/dL 0.1-1.0 Serum or plasma alkaline phosphatase measurement (enzymatic activity/volume) 52 U/L 40-136 Serum or plasma aspartate aminotransferase measurement (enzymatic activity/ volume) 22 U/L 5-34 Serum or plasma alanine aminotransferase measurement (enzymatic activity/volume ) 51 U/L 0-55 Serum or plasma protein measurement (mass/volume) 6.2 g/dL 6.4-8.2 Serum or plasma albumin measurement (mass/volume) 3.6 g/dL 3.2-4.5 Serum or plasma C reactive protein measurement (mass/volume) - 05/28/17 23:20 Serum or plasma C reactive protein measurement (mass/volume) 0.96 mg /dL 0.00-0.50 Encounters ACCT No. Visit Date/Time Discharge Status Pt. Type Provider Facility Loc./Unit Complaint [id number] 05/28/2017 22:31:00 05/29/2017 00:49:00 DIS Outpatient CHI CONDON MD [facility] ER CONGESTED,COUGH [id number] 01/20/2017 07:10:00 01/21/2017 11:17:00 DIS Outpatient Leobardo NEWTON MD [facility] CATH ABNORMAL STRES TEST, CHEST PAIN, HTN [id number] 01/13/2017 07:51:00 01/13/2017 23:59:59 CLS Outpatient Leobardo NEWTON MD [facility] CARD R07.9 [id number] 12/30/2016 13:43:00 12/30/2016 23:59:59 CLS Outpatient Leobardo NEWTON MD [facility] CARD R07.9 [id number] 10/15/2016 14:58:00 10/15/2016 23:59:59 CLS Outpatient FATOU SHAW, MARY Natarajan [facility] CARD CHEST PAIN [id number] 11/13/2014 14:07:00 11/13/2014 23:59:59 CLS Outpatient CHACE SHAW, SILVINA Jones [facility] RAD NECK PAIN AND NERVE IMPINGMENT [id number] 09/18/2014 07:21:00 09/18/2014 23:59:59 CLS Outpatient CONCETTA GARCIA MD [facility] CARD SYNCOPE,BLACKOUTS [id number] 08/22/2014 07:39:00 08/22/2014 23:59:59 CLS Outpatient CONCETTA GARCIA MD [facility] RAD PERSISTENT CAMACHO FRONTAL FATIGUE [id number] 04/17/2013 09:31:00 04/17/2013 23:59:59 CLS Outpatient QASIM LARSEN MD [facility] RAD ABNORMAL SONO [id number] 04/16/2013 07:30:00 04/16/2013 23:59:59 CLS Outpatient QASIM LARSEN MD [facility] RAD ABD PAIN [id number] 04/11/2013 19:07:00 04/11/2013 21:11:00 DIS Emergency QASIM LARSEN MD [facility] ER R SIDE PAIN [id number] 11/02/2012 20:00:00 11/03/2012 07:25:00 DIS Outpatient CONCETTA GARCIA MD [facility] SLEEP EYAD,HYPERSOMNIA [id number] 06/22/2017 13:00:00 PEN Preadmit TATO TOMLIN MD [facility] SDC UMBILICAL HERNIA
[2017-06-22 11:50] VITALS: BP 122/76
[2017-06-22] MEDS ORDERED: BUP/EPI 0.5% 1:200,000 (SENSORCAINE) 30 ML VIAL ONE (12:08)
[2017-06-22] MEDS ORDERED: LACTATED RINGERS 1,000 ML IV PRN (12:12)
[2017-06-22] MEDS ORDERED: ceFAZolin 2 GM IV Premixed 50 ML IV ONE (12:15)
[2017-06-22] MEDS ORDERED: proPOfol 200 MG/20 ML (DIPRIVAN) VIAL IV ONE (12:16)
[2017-06-22] MEDS ORDERED: ONDANSETRON 4 MG/2 ML (SDV) Z0FRAN ONE (12:16)
[2017-06-22] MEDS ORDERED: ROCURONIUM 10 MG/ML 5 ML SYRINGE IV ONE ×3 (12:16→14:31)
[2017-06-22] MEDS ORDERED: LIDOCAINE PF 2% 5 ML (XYLOCAINE) VIAL ONE (12:16)
[2017-06-22] MEDS ORDERED: fentaNYL INJECTION 100 MCG/2 ML AMP ONE (12:17)
[2017-06-22] MEDS ORDERED: MIDAZOLAM 2 MG/2 ML (VERSED) VIAL ONE (12:18)
--- NOTE | 2017-06-22 13:41 | Progress Note-Pre Operative ---
Pre-Operative Progress Note H&P Reviewed The H&P was reviewed, patient examined and no changes noted. Date Seen by Provider: Jun 22, 2017 Time Seen by Provider: 13:30 Date H&P Reviewed: Jun 22, 2017 Time H&P Reviewed: 13:35 Pre-Operative Diagnosis: Symptomatic umbilical hernia YESENIA BAUTISTA [employer] Jun 22, 2017 1:41 pm
[2017-06-22] MEDS ORDERED: ACETAMINOPHEN 325 MG TABLET/CAPLET (TYLENOL) PO PRN (13:45)
[2017-06-22] MEDS ORDERED: morphine INJ 10 MG/ML 1ML (SYR OR VIAL) IVP PRN (13:45)
[2017-06-22] MEDS ORDERED: HYDROcodone/APAP 5 MG/325 MG (LORTAB) TAB PO ONE (13:45)
[2017-06-22] MEDS ORDERED: ONDANSETRON 4 MG/2 ML (SDV) Z0FRAN IVP PRN ×2 (13:45→15:00)
[2017-06-22] MEDS ORDERED: NEOSTIGMINE 1 MG/ML 5 ML SYRINGE ONE (14:20)
[2017-06-22] MEDS ORDERED: SEVOFLURANE (ULTANE) 15 ML INHAL SOLN ONE ×3 (14:20→14:39)
[2017-06-22] MEDS ORDERED: GLYCOPYRROLATE 0.2 MG/ML (ROBINUL) 2 ML VIAL ONE (14:20)
--- NOTE | 2017-06-22 14:56 | Anesthesia-General Post-Op ---
General Patient Condition Mental Status/LOC: Same as Preop Cardiovascular: Satisfactory Nausea/Vomiting: Absent Respiratory: Satisfactory Pain: Controlled Complications: Absent Post Op Complications Complications None Follow Up Care/Instructions Patient Instructions None needed. Anesthesia/Patient Condition Patient Condition Patient is doing well, no complaints, stable vital signs, no apparent adverse anesthesia problems. No complications reported per nursing. PRINCESS VAZQUEZ CRNA Jun 22, 2017 14:56
[2017-06-22] MEDS ORDERED: MEPERIDINE (DEMEROL) INJ 50 MG/ML IVP PRN (15:00)
[2017-06-22] MEDS: morphine INJ 10 MG/ML 1ML (SYR OR VIAL) IVP PRN ×2 (15:00→15:05)
[2017-06-22] MEDS: HYDROmorphone (DILAUDID) 2 MG/ML VIAL IVP PRN ×2 (15:20→15:30)
[2017-06-22 16:05] VITALS: BP 116/72
[2017-06-22 16:35] VITALS: BP 124/83
[2017-06-22 17:05] VITALS: BP 109/79
[2017-06-22] MEDS ORDERED: HYDR-34 PO (17:37)
[2017-06-22 18:05] VITALS: BP 122/78
[2017-06-22 18:25] VITALS: BP 122/78
--- NOTE | 2017-06-22 19:33 | OPERATIVE REPORT ---
DATE OF SERVICE: ATTENDING PRIMARY CARE PHYSICIAN: Dr. José Miguel Najera. PREOPERATIVE DIAGNOSIS: Symptomatic incarcerated umbilical hernia. POSTOPERATIVE DIAGNOSIS: Symptomatic incarcerated umbilical hernia. PROCEDURE: Open incarcerated umbilical hernia repair with mesh. SURGEON: Dr. Jorge Tomlin. VP OF TECHNOLOGY: Artur Arellano APRN. ANESTHESIA: General endotracheal. ESTIMATED BLOOD LOSS: Minimal. FINDINGS: A small incarcerated umbilical hernia with peritoneum within the hernia sac. No ischemic changes. DISPOSITION: The patient tolerated the procedure well. INDICATIONS: The patient is a 52-year-old male who was referred over to us for pain and swelling in the umbilical region. He states that this has been around for the past few weeks and has become much more painful. He reports that he developed cough and was found to have influenza as well as pneumonia. He reports that during the coughing episodes, he did notice the pain as well as the outpouching in the umbilical region. Upon examination in the office, he was found to have a tender umbilical hernia, which was nonreducible. There is no surrounding redness or erythema. The patient was brought to the operating room, laid supine on the table. After adequate IV pain and sedative medications and general endotracheal intubation, the abdomen was prepped and draped in standard surgical fashion. A 0.5% Marcaine with epinephrine was used to anesthetize the supraumbilical region. A crescent-shaped skin incision was then made using a 15 blade supraumbilically. Subcutaneous tissue was then dissected down using electrocautery. The hernia sac was identified and completely dissected out. Within the hernia sac was incarcerated omentum with no ischemic changes which was resected. Peritoneal lining and fascia were then examined underneath with no other hernias identified. A 6.4 cm coated polypropylene mesh was then placed into the defect which was only approximately 1.5 cm in size. We then proceeded with transfascial sutures using 0 Prolene interrupted sutures with visualization of good hemostasis. The subcutaneous tissue was then reapproximated using 3-0 Vicryl interrupted sutures. Skin was closed using 4-0 Monocryl running subcuticular sutures. The wound was then cleaned and covered with Dermabond. The umbilicus was then filled with tonsil sponges followed by 4 x 4 gauze followed by a large Op-Site. The patient tolerated the procedure well. We will start IV and oral pain medication as well as a clear liquid diet. Once he is tolerating clears and has good pain control with oral pain medications and ambulating well, we will discharge him home. He will be instructed to do no heavy lifting or exertion for the next six weeks. Job ID: [id number] DocumentID: [id number] Dictated Date: 06/22/2017 14:41:13 Surgical Orderly Date: 06/22/2017 19:32:24 Dictated By: JORGE TOMLIN MD MTDD
== END 2017-06-22 18:30 | disposition home or self-care (01) ==
LOC: SDC 11:17
PROVIDERS: ATTEND Surgery
DX: K42.1 Umbilical hernia with gangrene (principal); Z11.2 Encounter for screening for other bacterial diseases; I10 Essential (primary) hypertension; I25.10 Atherosclerotic heart disease of native coronary artery without angina pectoris; Z95.5 Presence of coronary angioplasty implant and graft; Z79.899 Other long term (current) drug therapy; Z88.5 Allergy status to narcotic agent; Z79.01 Long term (current) use of anticoagulants; Z79.82 Long term (current) use of aspirin
CPT/HCPCS: 87081; 94664

== ENCOUNTER 2018-02-27 05:49 | Outpatient (CLI) | payer BC ==
[~2018-02-27] VITALS: Ht 172.7 cm; Wt 123.4 kg
[~2018-02-27 05:49] MED LIST changes: +HYDR-34 PO; -LOSA100T28 PO; +LOSA100T8 PO
== END 2018-02-27 15:39 | disposition home or self-care (01) ==
LOC: PREOP 05:49
PROVIDERS: ATTEND Surgery
DX: Z01.818 Encounter for other preprocedural examination (principal)

== ENCOUNTER 2018-03-03 10:29 | Day surgery (SDC) | payer BC ==
[~2018-03-03] VITALS: Ht 172.7 cm; Wt 131.5 kg
[2018-03-03] MEDS ORDERED: NS IV 500 ML 500 ML ONE (10:59)
--- NOTE | 2018-03-03 11:04 | Progress Note-Pre Operative ---
Pre-Operative Progress Note H&P Reviewed The H&P was reviewed, patient examined and no changes noted. Date Seen by Provider: Mar 03, 2018 Time Seen by Provider: 11:00 Date H&P Reviewed: Mar 03, 2018 Time H&P Reviewed: 11:00 Pre-Operative Diagnosis: screening colonscopy TATO TOMLIN MD Mar 03, 2018 11:04
--- NOTE | 2018-03-03 11:04 | Conscious Sedation/ASA ---
Conscious Sedation Pre-Proced Time 11:00 ASA Score 2 For ASA 3 and 4: Consider anesthesia and medical clearance. Also, for patients with a history of failed moderate sedation consider anesthesia. Airway Lungs Heart ASA score ASA 1: a normal healthy patient ASA 2: a patient with a mild systemic disease (mid diabetes, controlled hypertension, obesity ASA 3: a patient with a severe systemic disease that limits activity (angina , COPD, prior Myocardial infarction) ASA 4: a patient with an incapacitating disease that is a constant threat to life (CHF, renal failure) ASA 5: a moribund patient not expected to survive 24 hrs. (ruptured aneurysm) ASA 6: a declared brain patient whose organs are being harvested. For emergent operations, add the letter E after the classification Mallampati Classification Grade 2 Sedation Plan Analgesia, Amnesia, Plan communicated to team members, Discussed options with patient/fam, Discussed risks with patient/fam The patient is an appropriate candidate to undergo the planned procedure, sedation, and anesthesia. The patient immediately re-assessed prior to indication. TATO TOMLIN MD Mar 03, 2018 11:04
[2018-03-03] MEDS ORDERED: NS IV 500 ML 500 ML IV PRN (11:10)
[2018-03-03] MEDS ORDERED: morphine INJ 10 MG/ML 1ML (SYR OR VIAL) IV PRN (11:15)
[2018-03-03] MEDS ORDERED: HYDROcodone/APAP 5 MG/325 MG (LORTAB) TAB PO PRN (11:15)
[2018-03-03] MEDS ORDERED: ACETAMINOPHEN 325 MG TABLET PO PRN (11:15)
[2018-03-03] MEDS ORDERED: MIDAZOLAM 2 MG/2 ML (VERSED) VIAL IVP ONE (11:15)
[2018-03-03] MEDS ORDERED: fentaNYL INJECTION 100 MCG/2 ML AMP IVP ONE (11:15)
[2018-03-03] MEDS ORDERED: LIDOCAINE JELLY 2% 6 ML SYRINGE MM PRN (11:15)
[2018-03-03] MEDS ORDERED: ONDANSETRON 4 MG/2 ML (SDV) Z0FRAN IV PRN (11:15)
[2018-03-03 11:23] VITALS: BP 125/82
[2018-03-03] MEDS ORDERED: fentaNYL INJECTION 100 MCG/2 ML AMP ONE ×2 (12:08)
[2018-03-03] MEDS ORDERED: MIDAZOLAM 2 MG/2 ML (VERSED) VIAL ONE ×3 (12:08→12:09)
--- NOTE | 2018-03-03 12:41 | Progress Note-Post Operative ---
Post-Operative Progess Note Surgeon (s)/Public Speaking Instructor (s) Surgeon TATO TOMLIN MD Public Speaking Instructor: none Pre-Operative Diagnosis screening colonscopy Post-Operative Diagnosis normal colon and rectum. Procedure & Operative Findings Date of Procedure 03/03/18 Procedure Performed/Findings Colonoscopy. Anesthesia Type CS Estimated Blood Loss Estimated blood loss (mL): minimal Specimens/Packing Specimens Removed none TATO TOMLIN MD Mar 03, 2018 12:41
--- NOTE | 2018-03-03 12:43 | Discharge Inst-Surgical ---
D/C Lap Instructions-SADA Follow Up 10 yrs or PRN Activity as tolerated High Fiber Diet 25g or more per day Avoid Alcohol, Caffeine, Spicy [place] and Acid foods. Drink 64 fluid oz or more of fluids per day. Symptoms to Report: Fever over 101 degree F, Nausea/Vomiting If any problems/questions: Contact your physician or go to Emergency Room TATO TOMLIN MD Mar 03, 2018 12:43
[2018-03-03 13:00] VITALS: BP 142/78
[2018-03-03 13:30] VITALS: BP 142/71
[2018-03-03 13:50] VITALS: BP 142/71
--- NOTE | 2018-03-03 18:08 | OPERATIVE REPORT ---
DATE OF SERVICE: 03/03/2018 ATTENDING PRIMARY CARE PHYSICIAN: Dr. José Miguel Najera. PREOPERATIVE DIAGNOSIS: Screening colonoscopy. POSTOPERATIVE DIAGNOSIS: Normal colon and rectum. PROCEDURE: Colonoscopy. SURGEON: Tato Tomlin MD ANESTHESIA: Conscious sedation. ESTIMATED BLOOD LOSS: Minimal. FINDINGS: No significant hemorrhoids identified. Prostate gland was palpable and appeared normal. The remainder of the colon and rectum were normal. DISPOSITION: The patient tolerated the procedure well. INDICATIONS: The patient is a 52-year-old male, who we have seen before in the past for an incarcerated umbilical hernia and did undergo repair in 06/2017. He is also in need of a colonoscopy as well as a prostate examination. He has not had one before in the past. He is otherwise doing well. Does not report any major issues with diarrhea nor constipation as well as no red blood per rectum nor any dark tarry stools. He also does not report any family history of colon cancer. DESCRIPTION OF PROCEDURE: The patient was brought to the endoscopy suite, laid in the left lateral decubitus position. After adequate IV pain and sedative medications and conscious sedation anesthesia, a digital rectal examination was performed. Normal sphincter tone was felt and there were no significant hemorrhoids identified. Prostate gland was palpable and appeared normal. The endoscope was then intubated to the anus and rectum was gently insufflated. The endoscope was then advanced through the valves of Saini in the rectum with no polyps or any neoplasms identified. We then proceeded to the sigmoid colon where no diverticulosis was identified. The endoscope was then advanced to the remainder of the descending, transverse and ascending colon to cecum. These segments were normal as well. There were no polyps or any neoplasms identified throughout the colon or rectum. The endoscope was then slowly withdrawn with taking a second look and suctioning of residual air with no additional findings. The patient tolerated the procedure well. We will recommend continued medical management with a high fiber diet with at least 30 grams of fiber per day as well as copious amounts of water to promote soft stools on a daily basis. He does not need another colonoscopy for another 10 years; however, sooner if he becomes symptomatic. Job ID: [id number] DocumentID: [id number] Dictated Date: 03/03/2018 12:36:23 Plate Maker Date: 03/03/2018 18:08:07 Dictated By: TATO TOMLIN MD
== END 2018-03-03 13:50 | disposition home or self-care (01) ==
LOC: ENDO 10:29
PROVIDERS: ATTEND Surgery
DX: Z12.11 Encounter for screening for malignant neoplasm of colon (principal); I25.10 Atherosclerotic heart disease of native coronary artery without angina pectoris; I10 Essential (primary) hypertension; Z95.5 Presence of coronary angioplasty implant and graft; Z79.02 Long term (current) use of antithrombotics/antiplatelets; Z79.82 Long term (current) use of aspirin; Z79.899 Other long term (current) drug therapy

== ENCOUNTER 2018-03-12 00:13 | Emergency (ER) | payer BC ==
[~2018-03-12] VITALS: Ht 172.7 cm; Wt 127.0 kg
--- OUTSIDE RECORDS SUMMARY | 2018-03-12 00:20 | XMS REPORT | Continuity of Care Document ---
Author Author [facility] Organization [facility] Address Unknown Phone Unavailable Allergies Active Description Code Type Severity Reaction Onset Reported/Identified Relationship to Patient Clinical Status Yes codeine [id number] Drug Allergy Severe HIVES 04/11/2013 Yes codeine [id number] Drug Allergy Severe HIVES (Pt has r 06/22/2017 Medications There is no data. Problems Date [...] R Ot 780.2 SYNCOPE AND COLLAPSE 07/18/2015 SILVINA MAS MD A Ot 723.1 CERVICALGIA 07/18/2015 SILVINA MAS MD A Ot 729.5 PAIN IN LIMB 07/18/2015 SILVINA MAS MD A Ot 780.4 DIZZINESS AND GIDDINESS 09/08/2015 QASIM LARSEN MD A Ot 571.8 CHRONIC LIVER DIS NEC 09/08/2015 BARBARA LARSEN MDNT A Ot 789.00 ABDOMINAL PAIN, UNSPECIFIED SITE 09/08/2015 BARBARA LARSEN MDNT A Ot 789.00 ABDOMINAL PAIN, UNSPECIFIED SITE 09/08/2015 CONCETTA GARCIA MD R Ot 780.79 OTH MALAISE FATIGUE 09/08/2015 CONCETTA GARCIA MD R Ot 784.0 HEADACHE 09/08/2015 ACE GARCIA MDYD R Ot 780.2 SYNCOPE AND COLLAPSE 09/08/2015 SILVINA MAS MD A Ot 723.1 CERVICALGIA 09/08/2015 SILVINA MAS MD Ot 729.5 PAIN IN LIMB 09/08/2015 SILVINA MAS MD A Ot 780.4 DIZZINESS AND GIDDINESS 10/15/2016 QASIM LARSEN MD Ot 571.8 CHRONIC LIVER DIS NEC 10/15/2016 QASIM LARSEN MD A Ot 789.00 ABDOMINAL PAIN, UNSPECIFIED SITE 10/15/2016 QASIM LARSEN MD A Ot 789.00 ABDOMINAL PAIN, UNSPECIFIED SITE 10/15/2016 CONCETTA GARCIA MD R Ot 780.79 OTH MALAISE FATIGUE 10/15/2016 CONCETTA GARCIA MD R Ot 784.0 HEADACHE 10/15/2016 CONCETTA GARCIA [...] Ot 789.00 ABDOMINAL PAIN, UNSPECIFIED SITE 12/21/2016 CHAVA SHAW, QASIM A Ot 789.00 ABDOMINAL PAIN, UNSPECIFIED SITE 12/21/2016 JOSE SHAW, CONCETTA R Ot 780.79 OTH MALAISE FATIGUE 12/21/2016 JOSE SHAW, CONCETTA R Ot 784.0 HEADACHE 12/21/2016 JOSE SHAW, CONCETTA R Ot 780.2 SYNCOPE AND COLLAPSE 12/21/2016 CHACE SHAW, SILVINA Jones Ot 723.1 CERVICALGIA 12/21/2016 SILVINA MAS MD Ot 729.5 PAIN IN LIMB 12/21/2016 SILVINA MAS MD Ot 780.4 DIZZINESS AND GIDDINESS 12/21/2016 FATOU SHAW, MARY Natarajan Ot R07.9 CHEST PAIN, UNSPECIFIED 01/21/2017 Leobardo NEWTON MD Ot I10 ESSENTIAL (PRIMARY) HYPERTENSION 01/21/2017 Leobardo NEWTON MD Ot I25.110 ATHSCL HEART DISEASE OF [place] COR ART W 01/21/2017 Leobardo NEWTON MD Ot Z79.899 OTHER PRICING CONSULTANT (CURRENT) DRUG THERAPY 01/27/2017 Leobardo NEWTON MD [...] MD Ot I25.110 ATHSCL HEART DISEASE OF [place] COR ART W 02/03/2017 Leobardo NEWTON MDZWAN Ot Z79.899 OTHER PRICING CONSULTANT (CURRENT) DRUG THERAPY 03/11/2017 Leobardo NEWTON MD Ot I10 ESSENTIAL (PRIMARY) HYPERTENSION 03/11/2017 LAMAR SHAW, Leobardo CARLSON Ot I25.110 ATHSCL HEART DISEASE OF [place] COR ART W 03/11/2017 LAMAR SHAW, Leobardo CARLSON Ot Z79.899 OTHER HALF-WAY (CURRENT) DRUG THERAPY 05/28/2017 CHAVA SHAW, QASIM [...] SYNCOPE AND COLLAPSE 05/28/2017 CHACE SHAW, SILVINA A Ot 723.1 CERVICALGIA 05/28/2017 CHACE SHAW, SILVINA [...] NEWTON MD Ot R07.9 CHEST PAIN, UNSPECIFIED 05/29/2017 CHI CONDON MD Ot E78.00 PURE HYPERCHOLESTEROLEMIA, UNSPECIFIED 05/29/2017 CHI CONDON MD Ot G47.30 SLEEP APNEA, UNSPECIFIED 05/29/2017 CHI CONDON MD Ot I10 ESSENTIAL (PRIMARY) HYPERTENSION 05/29/2017 CHI CONDON MD Ot J11.00 FLU DUE TO UNIDENTIFIED FLU VIRUS W UNSP 05/29/2017 CHI CONDON MD Ot K21.9 GASTRO-ESOPHAGEAL REFLUX DISEASE WITHOUT 05/29/2017 CHI CONDON MD Ot R09.81 NASAL CONGESTION 05/29/2017 CHI CONDON MD Ot Z77.22 CNTCT W AND EXPSR TO ENVIRON TOBACCO SMO 05/29/2017 CHI CONDON MD Ot Z79.02 HALF-WAY (CURRENT) USE OF ANTITHROMBOTI 05/29/2017 CHI CONDON MD Ot Z79.82 HALF-WAY (CURRENT) USE OF ASPIRIN 05/29/2017 CHI CONDON MD Ot Z88.5 ALLERGY STATUS TO NARCOTIC AGENT STATUS 05/29/2017 CHI CONDON MD Ot Z95.5 PRESENCE OF CORONARY ANGIOPLASTY IMPLANT 05/30/2017 CHI CONDON MD Ot E78.00 PURE HYPERCHOLESTEROLEMIA, UNSPECIFIED 05/30/2017 CHI CONDON MD Ot G47.30 SLEEP APNEA, UNSPECIFIED 05/30/2017 CHI CONDON MD Ot I10 ESSENTIAL (PRIMARY) HYPERTENSION 05/30/2017 CHI CONDON MD Ot J11.00 FLU DUE TO UNIDENTIFIED FLU VIRUS W UNSP 05/30/2017 CHI CONDON MD Ot K21.9 GASTRO-ESOPHAGEAL REFLUX DISEASE WITHOUT 05/30/2017 CHI CONDON MD Ot R09.81 NASAL CONGESTION 05/30/2017 CHI CONDON MD Ot Z77.22 CNTCT W AND EXPSR TO ENVIRON TOBACCO SMO 05/30/2017 CHI CONDON MD Ot Z79.02 HALF-WAY (CURRENT) USE OF ANTITHROMBOTI 05/30/2017 CHI CONDON MD Ot Z79.82 PRICING CONSULTANT (CURRENT) USE OF ASPIRIN 05/30/2017 CHI CONDON MD Ot Z88.5 ALLERGY STATUS TO NARCOTIC AGENT STATUS 05/30/2017 TAURUS SHAW, CHI Myles Ot Z95.5 PRESENCE OF CORONARY ANGIOPLASTY IMPLANT 06/17/2017 TATO TOMLIN MD, Ot K42.9 UMBILICAL HERNIA WITHOUT OBSTRUCTION OR 06/17/2017 TATO TOMLIN MD Ot Z01.818 ENCOUNTER FOR OTHER PREPROCEDURAL EXAMIN 06/17/2017 CHAVA SHAW, QASIM Jones Ot 571.8 CHRONIC LIVER DIS NEC 06/17/2017 CHAVA SHAW, QASIM Jones Ot 789.00 ABDOMINAL PAIN, UNSPECIFIED SITE 06/17/2017 CHAVA SHAW, QASIM A Ot 789.00 ABDOMINAL PAIN, UNSPECIFIED SITE 06/17/2017 JOSE SHAW, CONCETTA R Ot 780.79 OTH MALAISE FATIGUE 06/17/2017 JOSE SHAW, CONCETTA R Ot 784.0 HEADACHE 06/17/2017 JOSE SHAW, CONCETTA R Ot 780.2 SYNCOPE AND COLLAPSE 06/17/2017 CHACE SHAW, SILVINA A Ot 723.1 CERVICALGIA 06/17/2017 CHACE SHAW, SILVINA A Ot 729.5 PAIN IN LIMB 06/17/2017 CHACE SHAW, SILVINA A Ot 780.4 DIZZINESS AND GIDDINESS 06/17/2017 FATOU SHAW, MARY Natarajan Ot R07.9 CHEST PAIN, UNSPECIFIED 06/17/2017 Leobardo NEWTON MD Ot I10 ESSENTIAL (PRIMARY) HYPERTENSION 06/17/2017 Leobardo NEWTON MD Ot M79.89 OTHER SPECIFIED SOFT TISSUE DISORDERS 06/17/2017 Leobardo NEWTON MD Ot R06.02 SHORTNESS OF BREATH 06/17/2017 Leobardo NEWTON MD Ot R07.9 CHEST PAIN, UNSPECIFIED 06/17/2017 Leobardo NEWTON MD Ot I10 ESSENTIAL (PRIMARY) HYPERTENSION 06/17/2017 Leobardo NEWTON MD Ot M79.89 OTHER SPECIFIED SOFT TISSUE DISORDERS 06/17/2017 Leobardo NEWTON MD Ot R06.02 SHORTNESS OF BREATH 06/17/2017 Leobardo NEWTON MD Ot R07.9 CHEST PAIN, UNSPECIFIED 06/20/2017 TATO TOMLIN MD Ot K42.9 UMBILICAL HERNIA WITHOUT OBSTRUCTION OR 06/20/2017 TATO TOMLIN MD Ot Z01.818 ENCOUNTER FOR OTHER PREPROCEDURAL EXAMIN 06/22/2017 TATO TOMLIN MD Ot I10 ESSENTIAL (PRIMARY) HYPERTENSION 06/22/2017 TATO TOMLIN MD Ot I25.10 ATHSCL HEART DISEASE OF [place] CORONARY 06/22/2017 TATO TOMLIN MD, Ot K42.1 UMBILICAL HERNIA WITH GANGRENE 06/22/2017 TATO TOMLIN MD Ot Z11.2 ENCOUNTER FOR SCREENING FOR OTHER BACTER 06/22/2017 TATO TOMLIN MD Ot Z79.01 HALF-WAY (CURRENT) USE OF ANTICOAGULANT 06/22/2017 TATO TOMLIN MD Ot Z79.82 PRICING CONSULTANT (CURRENT) USE OF ASPIRIN 06/22/2017 TATO TOMLIN MD Ot Z79.899 OTHER HALF-WAY (CURRENT) DRUG THERAPY 06/22/2017 TATO TOMLIN MD Ot Z88.5 ALLERGY STATUS TO NARCOTIC AGENT STATUS 06/22/2017 TATO TOMLIN MD Ot Z95.5 PRESENCE OF CORONARY ANGIOPLASTY IMPLANT 07/26/2017 TATO TOMLIN MD Ot I10 ESSENTIAL (PRIMARY) HYPERTENSION 07/26/2017 TATO TOMLIN MD Ot I25.10 ATHSCL HEART DISEASE OF [place] CORONARY 07/26/2017 TATO TOMLIN MD, Ot K42.1 UMBILICAL HERNIA WITH GANGRENE 07/26/2017 TATO TOMLIN MD Ot Z11.2 ENCOUNTER FOR SCREENING FOR OTHER BACTER 07/26/2017 TATO TOMLIN MD Ot Z79.01 PRICING CONSULTANT (CURRENT) USE OF ANTICOAGULANT 07/26/2017 TATO TOMLIN MD Ot Z79.82 PRICING CONSULTANT (CURRENT) USE OF ASPIRIN 07/26/2017 TATO TOMLIN MD Ot Z79.899 OTHER HALF-WAY (CURRENT) DRUG THERAPY 07/26/2017 TATO TOMLIN MD Ot Z88.5 ALLERGY STATUS TO NARCOTIC AGENT STATUS 07/26/2017 TATO TOMLIN MD Ot Z95.5 PRESENCE OF CORONARY ANGIOPLASTY IMPLANT 07/27/2017 TATO TOMLIN MD Ot I10 ESSENTIAL (PRIMARY) HYPERTENSION 07/27/2017 TATO TOMLIN MD Ot I25.10 ATHSCL HEART DISEASE OF [place] CORONARY 07/27/2017 TATO TOMLIN MD, Ot K42.1 UMBILICAL HERNIA WITH GANGRENE 07/27/2017 TATO TOMLIN MD, Ot Z11.2 ENCOUNTER FOR SCREENING FOR OTHER BACTER 07/27/2017 TATO TOMLIN MD, Ot Z79.01 HALF-WAY (CURRENT) USE OF ANTICOAGULANT 07/27/2017 TATO TOMLIN MD, Ot Z79.82 PRICING CONSULTANT (CURRENT) USE OF ASPIRIN 07/27/2017 TATO TOMLIN MD, Ot Z79.899 OTHER PRICING CONSULTANT (CURRENT) DRUG THERAPY 07/27/2017 TATO TOMLIN MD, Ot Z88.5 ALLERGY STATUS TO NARCOTIC AGENT STATUS 07/27/2017 TATO TOMLIN MD, Ot Z95.5 PRESENCE OF CORONARY ANGIOPLASTY IMPLANT 08/03/2017 SUZANNE ALCOCER APRN Ot E78.00 PURE HYPERCHOLESTEROLEMIA, UNSPECIFIED 08/03/2017 SUZANNE ALCOCER APRN Ot G47.30 SLEEP APNEA, UNSPECIFIED 08/03/2017 SUZANNE ALCOCER APRN Ot I10 ESSENTIAL (PRIMARY) HYPERTENSION 08/03/2017 SUZANNE ALCOCER APRN Ot I25.2 OLD MYOCARDIAL INFARCTION 08/03/2017 SUZANNE ALCOCER APRN Ot K21.9 GASTRO-ESOPHAGEAL REFLUX DISEASE WITHOUT 08/03/2017 SUZANNE ALCOCER APRN Ot M79.602 PAIN IN LEFT ARM 08/03/2017 SUZANNE ALCOCER APRN Ot M79.89 OTHER SPECIFIED SOFT TISSUE DISORDERS 08/03/2017 SUZANNE ALCOCER APRN Ot Z77.22 CNTCT W AND EXPSR TO ENVIRON TOBACCO SMO 08/03/2017 SUZANNE ALCOCER APRN Ot Z79.02 HALF-WAY (CURRENT) USE OF ANTITHROMBOTI 08/03/2017 SUZANNE ALCOCER APRN Ot Z79.82 PRICING CONSULTANT (CURRENT) USE OF ASPIRIN 08/03/2017 SUZANNE ALCOCER APRN Ot Z87.19 PERSONAL HISTORY OF OTHER DISEASES OF TH 08/03/2017 SUZANNE ALCOCER APRN Ot Z88.5 ALLERGY STATUS TO NARCOTIC AGENT STATUS 08/03/2017 SUZANNE ALCOCER APRN Ot Z95.5 PRESENCE OF CORONARY ANGIOPLASTY IMPLANT 08/08/2017 SUZANNE ALCOCER APRN Ot E78.00 PURE HYPERCHOLESTEROLEMIA, UNSPECIFIED 08/08/2017 SUZANNE ALCOCER APRN Ot G47.30 SLEEP APNEA, UNSPECIFIED 08/08/2017 SUZANNE ALCOCER SCHEDULE CLERK Ot I10 ESSENTIAL (PRIMARY) HYPERTENSION 08/08/2017 SUZANNE ALCOCER APRN Ot I25.2 OLD MYOCARDIAL INFARCTION 08/08/2017 SUZANNE ALCOCER APRN Ot K21.9 GASTRO-ESOPHAGEAL REFLUX DISEASE WITHOUT 08/08/2017 SUZANNE ALCOCER APRN Ot M79.602 PAIN IN LEFT ARM 08/08/2017 SUZANNE ALCOCER APRN Ot M79.89 OTHER SPECIFIED SOFT TISSUE DISORDERS 08/08/2017 SUZANNE ALCOCER APRN Ot Z77.22 CNTCT W AND EXPSR TO ENVIRON TOBACCO SMO 08/08/2017 SUZANNE ALCOCER APRN Ot Z79.02 PRICING CONSULTANT (CURRENT) USE OF ANTITHROMBOTI 08/08/2017 SUZANNE ALCOCER APRN Ot Z79.82 HALF-WAY (CURRENT) USE OF ASPIRIN 08/08/2017 SUZANNE ALCOCER APRN Ot Z87.19 PERSONAL HISTORY OF OTHER DISEASES OF TH 08/08/2017 SUZANNE ALCOCER APRN Ot Z88.5 ALLERGY STATUS TO NARCOTIC AGENT STATUS 08/08/2017 SUZANNE ALCOCER APRN Ot Z95.5 PRESENCE OF CORONARY ANGIOPLASTY IMPLANT 02/27/2018 SADA SHAW, TATO Ot Z01.818 ENCOUNTER FOR OTHER PREPROCEDURAL EXAMIN 02/28/2018 TATO TOMLIN MD Ot Z01.818 ENCOUNTER FOR OTHER PREPROCEDURAL EXAMIN 03/02/2018 CHAVA SHAW, QASIM Jones Ot 571.8 CHRONIC LIVER DIS NEC 03/02/2018 CHAVA SHAW, QASIM Jones Ot 789.00 ABDOMINAL PAIN, UNSPECIFIED SITE 03/02/2018 CHAVA SHAW, QASIM Jones Ot 789.00 ABDOMINAL PAIN, UNSPECIFIED SITE 03/02/2018 JOSE SHAW, CONCETTA R Ot 780.79 OTH MALAISE FATIGUE 03/02/2018 CONCETTA GARCIA MD Ot 784.0 HEADACHE 03/02/2018 CONCETTA GARCIA MD Ot 780.2 SYNCOPE AND COLLAPSE 03/02/2018 SILVINA MAS MD Ot 723.1 CERVICALGIA 03/02/2018 SILVINA MAS MD Ot 729.5 PAIN IN LIMB 03/02/2018 SILVINA MAS MD Ot 780.4 DIZZINESS AND GIDDINESS 03/02/2018 FATOU SHAW, MARY Natarajan Ot R07.9 CHEST PAIN, UNSPECIFIED 03/02/2018 LAMAR SHAW, Leobardo CARLSON Ot I10 ESSENTIAL (PRIMARY) HYPERTENSION 03/02/2018 LAMAR SHAW, Leobardo CARLSON Ot M79.89 OTHER SPECIFIED SOFT TISSUE DISORDERS 03/02/2018 LAMAR SHAW, Leobardo CARLSON Ot R06.02 SHORTNESS OF BREATH 03/02/2018 LAMAR SHAW, Leobardo CARLSON Ot R07.9 CHEST PAIN, UNSPECIFIED 03/02/2018 LAMAR SHAW, Leobardo CARLSON Ot I10 ESSENTIAL (PRIMARY) HYPERTENSION 03/02/2018 LAMAR SHAW, Leobardo CARLSON Ot M79.89 OTHER SPECIFIED SOFT TISSUE DISORDERS 03/02/2018 Leobardo NEWTON MD Ot R06.02 SHORTNESS OF BREATH 03/02/2018 LAMAR SHAW, Leobardo CARLSON Ot R07.9 CHEST PAIN, UNSPECIFIED 03/03/2018 TATO TOMLIN MD Ot I10 ESSENTIAL (PRIMARY) HYPERTENSION 03/03/2018 TATO TOMLIN MD Ot I25.10 ATHSCL HEART DISEASE OF [place] CORONARY 03/03/2018 TATO TOMLIN MD Ot Z12.11 ENCOUNTER FOR SCREENING FOR MALIGNANT NE 03/03/2018 TATO TOMLIN MD Ot Z79.02 HALF-WAY (CURRENT) USE OF ANTITHROMBOTI 03/03/2018 TATO TOMLIN MD Ot Z79.82 HALF-WAY (CURRENT) USE OF ASPIRIN 03/03/2018 TATO TOMLIN MD Ot Z79.899 OTHER PRICING CONSULTANT (CURRENT) DRUG THERAPY 03/03/2018 TATO TOMLIN MD Ot Z95.5 PRESENCE OF CORONARY ANGIOPLASTY IMPLANT 03/07/2018 TATO TOMILN MD Ot I10 ESSENTIAL (PRIMARY) HYPERTENSION 03/07/2018 TATO TOMLIN MD Ot I25.10 ATHSCL HEART DISEASE OF [place] CORONARY 03/07/2018 TATO TOMLIN MD Ot Z12.11 ENCOUNTER FOR SCREENING FOR MALIGNANT NE 03/07/2018 TATO TOMLIN MD, Ot Z79.02 HALF-WAY (CURRENT) USE OF ANTITHROMBOTI 03/07/2018 TATO TOMLIN MD Ot Z79.82 PRICING CONSULTANT (CURRENT) USE OF ASPIRIN 03/07/2018 TATO TOMLIN MD, Ot Z79.899 OTHER PRICING CONSULTANT (CURRENT) DRUG THERAPY 03/07/2018 TATO TOMLIN MD, Ot Z95.5 PRESENCE OF CORONARY ANGIOPLASTY [...] resistant Staphylococcus aureus (MRSA) screening culture NEG [facility] Automated blood complete blood count (hemogram) panel [...] calculation of estimated glomerular filtration rate > [facility] Serum or plasma glucose measurement (mass/volume) 104 mg/dL 70-105 Serum or plasma calcium measurement (mass/volume) 9.0 mg/dL 8.5-10.1 Influenza virus A and B antigen detection - 05/28/17 23:13 CALL POSITIVES (F1 HELP) CALLED TO [place] AT [phone] [facility] FLU RESULT POSITIVE FOR INFLUENZA B ANTIGEN, NEG FOR A ANTIGEN, BY [facility] Complete blood count (CBC) with automated white [...] protein measurement (mass/volume) 0.96 mg /dL 0.00-0.50 Methicillin resistant Staphylococcus aureus (MRSA) screening culture - 11:55 Methicillin resistant Staphylococcus aureus (MRSA) screening culture NEG NRG Complete urinalysis with reflex to culture - 08/03/17 16:15 Urine color determination YELLOW NRG Urine clarity determination CLEAR NRG Urine pH measurement by test strip 5 5-9 Specific gravity of urine by test strip 1.025 1.016- 1.022 Urine protein assay by test strip, semi-quantitative NEGATIVE NEGATIVE Urine glucose detection by automated test strip NEGATIVE NEGATIVE Erythrocytes detection in urine sediment by light microscopy NEGATIVE NEGATIVE Urine ketones detection by automated test strip NEGATIVE NEGATIVE Urine nitrite detection by test strip NEGATIVE NEGATIVE Urine total bilirubin detection by test strip NEGATIVE NEGATIVE Urine urobilinogen measurement by automated test strip (mass/volume) NORMAL NORMAL Urine leukocyte esterase detection by dipstick NEGATIVE NEGATIVE Automated urine sediment erythrocyte count by microscopy (number/high power field) NONE NRG Automated urine sediment leukocyte count by microscopy (number/high power field ) RARE NRG Bacteria detection in urine sediment by light microscopy NEGATIVE NRG Crystals detection in urine sediment by light microscopy NONE NRG Casts detection in urine sediment by light microscopy NONE NRG Mucus detection in urine sediment by light microscopy MODERATE NRG Complete urinalysis with reflex to culture NO NRG Complete blood count (CBC) with automated white blood cell (WBC) differential - 08/03/17 16:20 Blood leukocytes automated count (number/volume) 7.1 10*3/uL 4.3-11.0 Blood erythrocytes automated count (number/volume) 4.70 10*6/uL 4.35-5.85 Venous blood hemoglobin measurement (mass/volume) 14.7 g/dL 13.3-17.7 Blood hematocrit (volume fraction) 42 % 40-54 Automated erythrocyte mean corpuscular volume 90 [foz_us] 80-99 Automated erythrocyte mean corpuscular hemoglobin (mass per erythrocyte) 31 pg 25-34 Automated erythrocyte mean corpuscular hemoglobin concentration measurement ( mass/volume) 35 g/dL 32-36 Automated erythrocyte distribution width ratio 13.8 % 10.0-14.5 Automated blood platelet count (count/volume) 239 10*3/uL 130-400 Automated blood platelet mean volume measurement 10.0 [foz_us] 7.4-10.4 Automated blood neutrophils/100 leukocytes 67 % 42-75 Automated blood lymphocytes/100 leukocytes 21 % 12-44 Blood monocytes/100 leukocytes 9 % 0-12 Automated blood eosinophils/100 leukocytes 3 % 0-10 Automated blood basophils/100 leukocytes 0 % 0-10 Blood neutrophils automated count (number/volume) 4.7 10*3 1.8-7.8 Blood lymphocytes automated count (number/volume) 1.5 10*3 1.0-4.0 Blood monocytes automated count (number/volume) 0.6 10*3 0.0-1.0 Automated eosinophil count 0.2 10*3/uL 0.0-0.3 Automated blood basophil count (count/volume) 0.0 10*3/uL 0.0-0.1 Fibrin D-dimer FEU measurement in platelet poor plasma (mass/volume) - 16:20 Fibrin D-dimer FEU measurement in platelet poor plasma (mass/volume) 0.30 ug/mL 0.00-0.49 Comprehensive metabolic panel - 08/03/17 16:20 Serum or plasma sodium measurement (moles/volume) 142 mmol/L 135-145 Serum or plasma potassium measurement (moles/volume) 3.7 mmol/L 3.6-5.0 Serum or plasma chloride measurement (moles/volume) 110 mmol/L 98-107 Carbon dioxide 22 mmol/L 21-32 Serum or plasma anion gap determination (moles/volume) 10 mmol/L 5-14 Serum or plasma urea nitrogen measurement (mass/volume) 12 mg/dL 7-18 Serum or plasma creatinine measurement (mass/volume) 1.07 mg/dL 0.60-1.30 Serum or plasma urea nitrogen/creatinine mass ratio 11 NRG Serum or plasma creatinine measurement with calculation of estimated glomerular filtration rate > NRG Serum or plasma glucose measurement (mass/volume) 130 mg/dL 70-105 Serum or plasma calcium measurement (mass/volume) 9.3 mg/dL 8.5-10.1 Serum or plasma total bilirubin measurement (mass/volume) 0.6 mg/dL 0.1-1.0 Serum or plasma alkaline phosphatase measurement (enzymatic activity/volume) 50 U/L 40-136 Serum or plasma aspartate aminotransferase measurement (enzymatic activity/ volume) 20 U/L 5-34 Serum or plasma alanine aminotransferase measurement (enzymatic activity/volume ) 37 U/L 0-55 Serum or plasma protein measurement (mass/volume) 6.6 g/dL 6.4-8.2 Serum or plasma albumin measurement (mass/volume) 4.1 g/dL 3.2-4.5 Serum or plasma lithium measurement (moles/volume) - 08/03/17 16:20 BNP level 24.8 pg/mL <100.0 Serum or plasma troponin i.cardiac measurement (mass/volume) - 08/03/17 16:20 Serum or plasma troponin i.cardiac measurement (mass/volume) < ng/ mL <0.30 THYROID STIMULATING HORMONE - 08/03/17 16:20 THYROID STIMULATING HORMONE 0.87 u[iU]/mL 0.35-4.94 Serum or plasma thyroxine (T4) free measurement (mass/volume) - 08/03/17 16:20 Serum or plasma thyroxine (T4) free measurement (mass/volume) 0.96 ng/dL 0.70-1.48 Encounters ACCT No. Visit Date/Time Discharge Status Pt. Type Provider Facility Loc./Unit Complaint [id number] 03/03/2018 10:29:00 03/03/2018 13:50:00 DIS Outpatient TATO TOMLIN MD [facility] ENDO SCREENING [id number] 02/27/2018 05:49:00 02/27/2018 15:39:00 DIS Outpatient TATO TOMLIN MD [facility] PREOP COLONOSCOPY [id number] 08/03/2017 15:41:00 08/03/2017 18:06:00 DIS Emergency SUZANNE ALCOCER APRN [facility] ER L ARM PAIN AND SWELLING, HEART ATTACK IN 01/04 [id number] 06/22/2017 11:17:00 06/22/2017 18:30:00 DIS Outpatient TATO TOMLIN MD [facility] SDC UMBILICAL HERNIA [id number] 06/17/2017 05:53:00 06/17/2017 09:31:00 DIS Outpatient TATO TOMLIN MD [facility] PREOP UMBILICAL HERNIA [id number] 05/28/2017 22:31:00 05/29/2017 00:49:00 DIS Emergency CHI CONDON MD [facility] ER CONGESTED,COUGH [id number] 01/20/2017 07:10:00 01/21/2017 11:17:00 DIS Outpatient Leobardo NEWTON MD [facility] CATH ABNORMAL STRES TEST, CHEST PAIN, HTN [id number] 01/13/2017 07:51:00 01/13/2017 23:59:59 CLS Outpatient Leobardo NEWTON MD [facility] CARD R07.9 [id number] 12/30/2016 13:43:00 12/30/2016 23:59:59 CLS Outpatient Leobardo NEWTON MD [facility] CARD R07.9 [id number] 10/15/2016 14:58:00 10/15/2016 23:59:59 CLS Outpatient MARY LAINEZ MD [facility] CARD CHEST PAIN [id number] 11/13/2014 14:07:00 11/13/2014 23:59:59 CLS Outpatient SILVINA MAS MD [facility] RAD NECK PAIN AND NERVE IMPINGMENT [id number] 09/18/2014 07:21:00 09/18/2014 23:59:59 CLS Outpatient CONCETTA GARCIA MD [facility] CARD SYNCOPE,BLACKOUTS [id number] 08/22/2014 07:39:00 08/22/2014 23:59:59 CLS Outpatient CONCETTA GARCIA MD [facility] RAD PERSISTENT CAMACHO FRONTAL FATIGUE [id number] 04/17/2013 09:31:00 04/17/2013 23:59:59 CLS Outpatient QASIM LARSEN MD [facility] RAD ABNORMAL SONO [id number] 04/16/2013 07:30:00 04/16/2013 23:59:59 CLS Outpatient QASIM LARSEN MD [facility] RAD ABD PAIN [id number] 04/11/2013 19:07:00 04/11/2013 21:11:00 DIS Emergency CHAVA SHAW, QASIM Jones [facility] ER R SIDE PAIN [id number] 11/02/2012 20:00:00 11/03/2012 07:25:00 DIS Outpatient JOSE SHAW, CONCETTA R [facility] SLEEP EYAD,HYPERSOMNIA [id number] 03/16/2018 08:00:00 PEN Preadmit LAMAR SHAW, Leobardo CARLSON [facility] CARD DIZZINESS [id number] 03/12/2018 00:15:00 ACT Emergency TAURUS SHAW, CHI Myles [facility] ER FELL EARLIER ON LEFT HAND
--- NOTE | 2018-03-12 00:42 | ED Fall/Injury ---
General Chief Complaint: Upper Extremity Stated Complaint: FELL EARLIER ON LEFT HAND Source: patient, spouse Exam Limitations: no limitations History of Present Illness Date Seen by Provider: Mar 12, 2018 Time Seen by Provider: 00:33 Initial Comments Patient presents to the ER by private conveyance with his spouse and chief complaint that he was helping take some forms off of concrete and he lost his balance and fell forward onto outstretched hands. He has a history of having fractured his left hand and a fall years ago and had to have surgery on it. He is also had carpal tunnel syndrome with release surgically in the past. He had a stitches on his left wrist from a chainsaw accident many years ago as well. Today however he is having some pain and swelling and bruising on his hand that he attributes to his clopidogrel but the pain is concerning him that he might of fractured something. Mostly his pain is more on the fourth and fifth metacarpal region. He has decreased die cleaner strength. He follows with Dr. Mayorga, cardiology and Dr. José Miguel Lainez. He is on Plavix. A week ago he was taken off of the atorvastatin because of some shoulder pain. His symptoms of shoulder pain has gone away. Allergies and Home Medications Allergies Coded Allergies: codeine (Verified Allergy, Severe, HIVES (Pt has received Lortab in the past), 06/22/17) Home Medications Aspirin 81 Mg Tablet.dr, 81 MG PO DAILY, (Reported) Atorvastatin Calcium 80 Mg Tablet, 40 MG PO HS, (Reported) take 1/2 of 80mg tab Clopidogrel Bisulfate 75 Mg Tablet, 75 MG PO DAILY, (Reported) Losartan Potassium 100 Mg Tablet, 100 MG PO DAILY, (Reported) Metoprolol Succinate 25 Mg Tab.er.24h, 25 MG PO BID, (Reported) Patient Home Medication List Home Medication List Reviewed: Yes Review of Systems Review of Systems Constitutional: No chills, No diaphoresis Eyes: Denies Blindness, Denies Blurred Vision Ears, Nose, Mouth, Throat: denies ear pain, denies ear discharge Respiratory: No cough, No dyspnea on exertion Cardiovascular: No chest pain, No palpitations Gastrointestinal: No abdominal pain, No constipation, No diarrhea Musculoskeletal: other (left hand has mild ecchymoses and swelling on the palm over the extensor retinaculum with the imprint of gravel. The skin is not broken. There is tenderness in the second through the fifth metacarpal. There is no tenderness over the anatomic snuffbox or in the wrist.) Past Vartxts-Xxcuxm-Xrdhbj Hx Patient Social History Alcohol Use: Denies Use Recreational Drug Use: No Smoking Status: Never a Smoker 2nd Hand Smoke Exposure: Yes Recent Foreign Travel: No Contact w/Someone Who Travel: No Recent Hopitalizations: No Immunizations Up To Date Tetanus Booster (TDap): Unknown PED Vaccines UTD: No Date of Influenza Vaccine: Dec 28, 2017 Seasonal Allergies Seasonal Allergies: No Past Medical History Surgeries: Yes (HERNIA X2, ESOPHAGUS STRETCHING) Coronary Stent Respiratory: Yes (CPAP) Sleep Apnea Currently Using CPAP: Yes Cardiac: Yes (STENTS) High Cholesterol, Hypertension Neurological: No Genitourinary: No Gastrointestinal: Yes Gastroesophageal Reflux Musculoskeletal: No Endocrine: No HEENT: No Cancer: No Psychosocial: No Integumentary: No Blood Disorders: No Adverse Reaction/Blood Tranf: No Physical Exam Vital Signs Vital Signs - First Documented 03/12/18 00:31 Temp 98.3 Pulse 95 Resp 20 B/P (MAP) 130/84 (99) O2 Delivery Room Air Capillary Refill : Height, Weight, BMI Height: 5'8.00" Weight: 290lbs. 0.0oz. [id number]; 44.1 BMI Method:Stated General Appearance: WD/WN, no apparent distress HEENT: PERRL/EOMI, pharynx normal Neck: full range of motion, normal inspection Cardiovascular: normal peripheral pulses, regular rate, rhythm, no edema Respiratory: no respiratory distress, no accessory muscle use Extremities: normal capillary refill, swelling (mild), other (tenderness along the second third fourth and fifth metacarpals but no tenderness over the anatomic snuffbox. 90% flexion intact and full range of motion with extension of the left hand.) Neurologic/Psychiatric: no motor/sensory deficits, alert, normal mood/affect Skin: normal color, warm/dry, ecchymosis (faint ecchymoses over the left wrist) [place] Coma Score Best Eye Response: (4) Open Spontaneously Best Verbal Response: (5) Oriented Best Motor Response: (6) Obeys Commands [place] Total: 15 Progress/Results/Core Measures Results/Orders My Orders Orders - [facility] Hand, Left, 3 Views (03/12/18 00:37) Vital Signs/I&O 03/12/18 00:31 Temp 98.3 Pulse 95 Resp 20 B/P (MAP) 130/84 (99) O2 Delivery Room Air Progress Progress Note : Time: 00:42 Progress Note Hand x-ray 3 views. Diagnostic Imaging Diagonstic Imaging: Xray Plain Films/CT/US/NM/MRI: hand (left, 3 view) Comments No acute osseous abnormalities noted on a 3 view hand x-ray. Reviewed: Reviewed by Me Departure Impression Primary Impression: Fall Qualified Codes: W19.XXXA - Unspecified fall, initial encounter Additional Impression: Hand pain, left Disposition: HOME, SELF-CARE Condition: Stable Departure-Patient Inst. Decision time for Depature: 01:31 Referrals: JOSÉ MIGUEL LAINEZ MD (PCP/Family) Primary Care Physician Patient Instructions: Common Wrist Injuries (DC) Add. Discharge Instructions: Bothers no fracture apparent on today's x-ray if your symptoms are not improving in 7-10 days. Follow-up with primary care to have the hand reexamined and possibly reimaged. Use Tylenol and Motrin as well as heat, elevation above the level of your heart and compression from an Jose Luis wrap or similar wrist sleeve as necessary for pain control. If your hand becomes numb or cool to the touch then you should return to the nearest ER. All discharge instructions reviewed with patient and/or family. Voiced understanding. Work/School Note: Work Release Form Date Seen in the Emergency Department: Mar 12, 2018 Return to Work: Mar 13, 2018 Restrictions: Need Release from Doctor Other Restrictions Listed Below: Light duty with left hand lifting no more than 1 pound until 03/19/18. [facility] Mar 12, 2018 00:42
[2018-03-12 01:57] VITALS: BP 133/88
--- NOTE | 2018-03-12 06:32 | Diagnostic Imaging Report ---
EXAMINATION: Left hand at 1252 AM INDICATION: Fell, hand pain Three views were obtained. There are no prior studies available for comparison. There is no fracture, dislocation or acute bony abnormality evident. The soft tissues are unremarkable. IMPRESSION: There is no evidence for an acute bony abnormality. Dictated by: Dictated on workstation # [id number]
== END 2018-03-12 01:57 | disposition home or self-care (01) ==
LOC: EDUNIT# 00:13 → ER 00:15
DX: M79.642 Pain in left hand (principal); G47.30 Sleep apnea, unspecified; E78.00 Pure hypercholesterolemia, unspecified; I10 Essential (primary) hypertension; K21.9 Gastro-esophageal reflux disease without esophagitis; R40.2142 Coma scale, eyes open, spontaneous, at arrival to emergency department; R40.2252 Coma scale, best verbal response, oriented, at arrival to emergency department; R40.2362 Coma scale, best motor response, obeys commands, at arrival to emergency department; Z88.5 Allergy status to narcotic agent; Z79.82 Long term (current) use of aspirin; Z79.02 Long term (current) use of antithrombotics/antiplatelets; Z77.22 Contact with and (suspected) exposure to environmental tobacco smoke (acute) (chronic); Z95.5 Presence of coronary angioplasty implant and graft; W19.XXXA Unspecified fall, initial encounter
CPT/HCPCS: 73130

== ENCOUNTER 2018-03-15 09:12 | Outpatient (RCR) | payer BC ==
[~2018-03-15 09:12] MED LIST changes: +LOSA100T57 PO; -LOSA100T8 PO
== END 2018-06-13 | disposition home or self-care (01) ==
LOC: CARD 09:12
PROVIDERS: ATTEND Internal Medicine Interventional Cardiology
DX: R42 Dizziness and giddiness (principal)
CPT/HCPCS: 93225; 93226

== ENCOUNTER → 2020-03-06 | Outpatient (CLI) | payer BC, OTHER ==
[~2020-03-06] MED LIST changes: +ASPI-1238 PO; -ASPI-983 PO; -METO-387 PO; +MTP25TSR PO
--- NOTE | 2020-03-06 16:09 | Diagnostic Imaging Report ---
INDICATION: Lump in the right breast. The patient had recent right breast trauma. Interrogation of the area of lump, right breast, was performed. There is an area of echogenicity at the 9:00 location, 2 cm from the nipple measuring 12 mm x 8 mm x 9 mm. No internal vascularity is seen. IMPRESSION: BI-RADS Category 2 Area of increased echogenicity just below the skin surface, right breast, at the area of palpable abnormality. This could represent a lipoma versus potentially a hematoma. No concerning sonographic findings are identified. ACR BI-RADS Category 2: Benign findings. Result letter will be mailed to the patient. Note: At least 10% of breast cancer is not imaged by mammography. Dictated by: Dictated on workstation # [id number]
== END ==
LOC: RAD 10:45
PROVIDERS: ATTEND Family Medicine
DX: N63.15 Unspecified lump in the right breast, overlapping quadrants (principal)

== ENCOUNTER 2020-09-17 20:06 | Emergency (ER) | payer BC ==
[~2020-09-17] VITALS: Ht 172.7 cm; Wt 140.0 kg
[2020-09-17] MEDS ORDERED: TETRACAINE 0.5% OPHTH SOLN 4 ML BTL (SINGLE DOSE ONLY) ONE (20:25)
[2020-09-17] MEDS ORDERED: TETRACAINE 0.5% OPHTH SOLN 4 ML BTL (SINGLE DOSE ONLY) OP ONE (20:30)
--- NOTE | 2020-09-17 21:11 | ED Headache ---
General Chief Complaint: Head/Cervical Problems Stated Complaint: HEADACHE Nursing Triage Note: Pt arrival to ER with complaint of off/on headache x4 weeks. Pt states that usually he can usally take tylenol and sleep it off, but this has just worsened. PT states that his right eye is also blood shot and has been watering most of the day. Pt states that he has taken max daily dose of tylenol today. Source: patient Exam Limitations: no limitations History of Present Illness Date Seen by Provider: Sep 17, 2020 Time Seen by Provider: 20:40 Initial Comments Patient is a 55-year-old male who presents to the emergency department today with a chief complaint of headache. Patient states it is primarily right-sided and he complains of swelling to his right ear to the point that he cannot wear his hearing aid. He states the pain radiates down to his right jaw and that his teeth ache. Patient states that his right eye has become red this evening and has been watering. He saw his primary care provider last Tuesday and got a shot of Toradol which improved his headache. He states that he has an appointment tomorrow at 430 with his eye doctor. He states nothing really makes his pain any better or any worse. Normally he can take Tylenol and rest and his headache will improve but he took multiple doses of Tylenol today without any alleviation of his symptoms. Patient denies any recent fevers, chills, cough or congestion. No nausea, vomiting or diarrhea. No other complaints of illness. Last Tylenol was around 3:00 this afternoon. Symptoms have been coming on over the course of the last 3 to 4 weeks. All other review of systems reviewed and negative except as stated above. Timing/Duration: 4-6 hours Severity/Quality: moderate, throbbing Location: temporal Prior Headaches/Recent Trauma: frequent headaches Modifying Factors: worse with exposure to light Associated Symptoms: other (nausea, right ear swelling and pain; dental pain) Allergies and Home Medications Allergies Coded Allergies: codeine (Verified Allergy, Severe, HIVES (Pt has received Lortab in the past), 06/22/17) Home Medications Aspirin 81 Mg Tablet.dr, 81 MG PO DAILY, (Reported) Atorvastatin Calcium 80 Mg Tablet, 40 MG PO HS, (Reported) take 1/2 of 80mg tab Clopidogrel Bisulfate 75 Mg Tablet, 75 MG PO DAILY, (Reported) Losartan Potassium 100 Mg Tablet, 100 MG PO DAILY, (Reported) Metoprolol Succinate 25 Mg Tab.er.24h, 25 MG PO BID, (Reported) Patient Home Medication List Home Medication List Reviewed: Yes Review of Systems Review of Systems Constitutional: see HPI Eyes: Blurred Vision Ears, Nose, Mouth, Throat: ear pain (swelling on the right) Respiratory: no symptoms reported Cardiovascular: no symptoms reported Gastrointestinal: nausea Genitourinary: no symptoms reported Musculoskeletal: no symptoms reported Skin: no symptoms reported Psychiatric/Neurological: Headache (right sided, right face) Past Xuexgud-Wcrnlk-Iivucu Hx Patient Social History Tobacco Use?: No Pt feels they are or have been: No Immunizations Up To Date Tetanus Booster (TDap): Unknown PED Vaccines UTD: Yes Second COVID19 Vaccination Solomon: 07/03/20 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: [place] Seasonal Allergies Seasonal Allergies: No Past Medical History Surgeries: Yes (HERNIA X2, ESOPHAGUS STRETCHING) Coronary Stent Respiratory: Yes (CPAP) Sleep Apnea Currently Using CPAP: Yes Cardiac: Yes (STENTS) High Cholesterol, Hypertension Neurological: No Genitourinary: No Gastrointestinal: Yes Gastroesophageal Reflux Musculoskeletal: No Endocrine: No HEENT: No Cancer: No Psychosocial: No Integumentary: No Blood Disorders: No Adverse Reaction/Blood Tranf: No Physical Exam Vital Signs Vital Signs - First Documented 09/17/20 20:11 Temp 37.0 Pulse 92 Resp 20 B/P (MAP) 149/68 (95) Pulse Ox 97 O2 Delivery Room Air Capillary Refill : Less Than 3 Seconds Height, Weight, BMI Height: 5'8.00" Weight: 280lbs. 0.0oz. [id number]; 46.00 BMI Method:Stated General Appearance: WD/WN, no apparent distress HEENT: PERRL/EOMI, normal ENT inspection, TMs normal Neck: non-tender, full range of motion, supple, normal inspection Cardiovascular: regular rate, rhythm Respiratory: lungs clear, normal breath sounds, no respiratory distress, no accessory muscle use Gastrointestinal: non tender, soft Extremities: normal range of motion, non-tender, normal inspection Psychiatric: alert, oriented x 3 Crainal Nerves: normal hearing, normal speech, PERRL Motor/Sensory: no motor deficit, no sensory deficit, no pronator drift Skin: normal color, warm/dry Progress/Results/Core Measures Results/Orders My Orders Orders - JONG WILKINS MD Tetracaine 0.5% Ophth Claudette Sdv (Tetracai (09/17/20 20:30) Tetracaine 0.5% Ophth Claudette Sdv (Tetracai (09/17/20 20:25) Ketorolac Injection (Toradol Injection) (09/17/20 21:15) Medications Given in ED Current Medications Medications Dose Ordered Sig/Shruthi Route Start Time Stop Time Status Last Admin Dose Admin Ketorolac Tromethamine 30 mg ONCE ONCE IM 09/17/20 21:15 09/17/20 21:16 DC 09/17/20 21:25 30 MG Vital Signs/I&O 09/17/20 09/17/20 20:11 22:05 Temp 37.0 Pulse 92 79 Resp 20 20 B/P (MAP) 149/68 (95) 152/90 Pulse Ox 97 97 O2 Delivery Room Air Room Air Blood Pressure Mean: 95 Progress Progress Note : Time: 21:38 Progress Note Patient's intraocular pressures were checked with a Natan-Pen on the right. 14 and 18 were obtained. No concern at this time for acute angle-closure glaucoma. The patient has no paresthesias or loss of sensation to the right face. I do not find any appreciable swelling externally of the right ear. Patient tells me that he has an appointment with Dr. Sellers with ophthalmology tomorrow around 4:00 in the afternoon. This is to evaluate his blurry vision. Patient is treated in the emergency department with 30 mg of Toradol IM. He states that his primary care provider, Dr. Lainez also gave him Toradol on Tuesday. Patient is advised to continue Tylenol every 4-6 hours as needed for headache. I have encouraged him to drink plenty of fluids to stay well- hydrated. I do not find any acute neurological deficits that would require imaging at this time. Patient will follow up also with Dr. Lainez. All questions are sought and answered. Patient is stable for discharge. 2158 Patient's headache is improving. Departure Impression Primary Impression: Headache Qualified Codes: R51.9 - Headache, unspecified Disposition: HOME, SELF-CARE Condition: Stable Departure-Patient Inst. Decision time for Depature: 21:40 Referrals: MARY LAINEZ MD (PCP/Family) Primary Care Physician Patient Instructions: Headache, Adult (DC) Add. Discharge Instructions: Drink plenty of fluids to stay well-hydrated. You can continue to take [id number] extra strength Tylenol 2 pills every 4-6 hours as needed for severe headache. You can also try Aleve, 2 pills with food twice daily as needed. Keep your follow-up appointment tomorrow with Dr. FOX. All discharge instructions reviewed with patient and/or family. Voiced understanding. Copy Copies To 1: MARY LAINEZ MD, KATHRYN M MD Sep 17, 2020 21:11
[2020-09-17] MEDS ORDERED: KETOROLAC 30 MG/ML VIAL IM ONE (21:15)
[2020-09-17 22:05] VITALS: BP 152/90
== END 2020-09-17 22:05 | disposition home or self-care (01) ==
LOC: EDUNIT# 20:06 → ER 20:08
DX: R51.9 Headache, unspecified (principal); I10 Essential (primary) hypertension; E78.00 Pure hypercholesterolemia, unspecified; Z88.5 Allergy status to narcotic agent; Z79.899 Other long term (current) drug therapy; Z79.01 Long term (current) use of anticoagulants; Z79.82 Long term (current) use of aspirin
CPT/HCPCS: 96372; 99284

== ENCOUNTER 2020-09-19 16:24 | Emergency (ER) | payer BC ==
[~2020-09-19] VITALS: Ht 173 cm; Wt 136.1 kg
--- NOTE | 2020-09-19 18:14 | ED Headache ---
General Chief Complaint: Head/Cervical Problems Stated Complaint: CAMACHO Nursing Triage Note: pt to ER ambulatory with complaint of migraine onset 1 month ago worse starting tuesday09/17/2020. Pt reports that he was seen tuesday in this ER and has had no improvement in symptoms. This part pt was started on oxcarbazepine 300mg yesterday pt is here today because he can no longer take the pain/discomfort and is hoping we can do something. pt has also taken several medications, none of which provided relief Source: patient Exam Limitations: no limitations History of Present Illness Date Seen by Provider: Sep 19, 2020 Time Seen by Provider: 18:12 Initial Comments To ER with a headache. This began about 3 days ago mildly and got progressively worse to the point that it is now intolerable. He was seen here a few days ago. No improvement after that. He followed up with Dr. José Miguel Lainez who gave him a prescription for Trileptal. Has had 2 doses of this. He is in the process of getting an MRI brain scheduled. He has nausea and photosensitivity no fevers no chills. This is a frontal bitemporal and occipital headache. Timing/Duration: constant, increasing Severity/Quality: pressure Location: frontal, temporal Prior Headaches/Recent Trauma: no recent headache/trauma Associated Symptoms: nausea/vomiting Allergies and Home Medications Allergies Coded Allergies: codeine (Verified Allergy, Severe, HIVES (Pt has received Lortab in the past), 06/22/17) Home Medications Amoxicillin/Potassium Clav 1 Each Tablet, 1 EACH PO BID Prescribed by: SUZANNE ALCOCER on 09/19/201946 Aspirin 81 Mg Tablet.dr, 81 MG PO DAILY, (Reported) Atorvastatin Calcium 80 Mg Tablet, 40 MG PO HS, (Reported) take 1/2 of 80mg tab Clopidogrel Bisulfate 75 Mg Tablet, 75 MG PO DAILY, (Reported) Losartan Potassium 100 Mg Tablet, 100 MG PO DAILY, (Reported) Metoprolol Succinate 25 Mg Tab.er.24h, 25 MG PO BID, (Reported) Prednisone 20 Mg Tab, 40 MG PO DAILY Prescribed by: SUZANNE ALCOCER on 09/19/201946 Patient Home Medication List Home Medication List Reviewed: Yes Review of Systems Review of Systems Constitutional: see HPI Eyes: No Symptoms Reported Ears, Nose, Mouth, Throat: no symptoms reported Respiratory: no symptoms reported Cardiovascular: no symptoms reported Genitourinary: no symptoms reported Musculoskeletal: no symptoms reported Skin: no symptoms reported Psychiatric/Neurological: See HPI, Headache Past Axtthxt-Fwdeve-Zkonoj Hx Immunizations Up To Date Tetanus Booster (TDap): Unknown PED Vaccines UTD: Yes Seasonal Allergies Seasonal Allergies: No Past Medical History Surgeries: Yes (HERNIA X2, ESOPHAGUS STRETCHING) Coronary Stent Respiratory: Yes (CPAP) Sleep Apnea Currently Using CPAP: Yes Cardiac: Yes (STENTS) High Cholesterol, Hypertension Neurological: No Genitourinary: No Gastrointestinal: Yes Gastroesophageal Reflux Musculoskeletal: No Endocrine: No HEENT: No Cancer: No Psychosocial: No Integumentary: No Blood Disorders: No Adverse Reaction/Blood Tranf: No Physical Exam Vital Signs Vital Signs - First Documented 09/19/20 17:09 Temp 36.8 Pulse 87 Resp 20 B/P (MAP) 143/92 (109) Capillary Refill : Less Than 3 Seconds Height, Weight, BMI Height: 5'8.00" Weight: 280lbs. 0.0oz. 127.979402zg; 45.00 BMI Method:Stated General Appearance: WD/WN, mild distress (Related to pain) HEENT: PERRL/EOMI, normal ENT inspection, TMs normal Neck: non-tender, full range of motion Respiratory: no respiratory distress, no accessory muscle use Extremities: normal range of motion, non-tender Psychiatric: alert, oriented x 3 Motor/Sensory: no motor deficit, no sensory deficit Skin: normal color, warm/dry Progress/Results/Core Measures Results/Orders Lab Results Laboratory Tests Test 09/19/20 18:10 Range/Units White Blood Count 8.9 4.3-11.0 10^3/uL Red Blood Count 5.01 4.30-5.52 10^6/uL Hemoglobin 15.5 13.3-17.7 g/dL Hematocrit 46 40-54 % Mean Corpuscular Volume 92 80-99 fL Mean Corpuscular Hemoglobin 31 25-34 pg Mean Corpuscular Hemoglobin Concent 34 32-36 g/dL Red Cell Distribution Width 13.3 10.0-14.5 % Platelet Count 252 130-400 10^3/uL Mean Platelet Volume 9.8 9.0-12.2 fL Immature Granulocyte % (Auto) 0 % Neutrophils (%) (Auto) 67 42-75 % Lymphocytes (%) (Auto) 22 12-44 % Monocytes (%) (Auto) 9 0-12 % Eosinophils (%) (Auto) 1 0-10 % Basophils (%) (Auto) 0 0-10 % Neutrophils # (Auto) 6.0 1.8-7.8 10^3/uL Lymphocytes # (Auto) 1.9 1.0-4.0 10^3/uL Monocytes # (Auto) 0.8 0.0-1.0 10^3/uL Eosinophils # (Auto) 0.1 0.0-0.3 10^3/uL Basophils # (Auto) 0.0 0.0-0.1 10^3/uL Immature Granulocyte # (Auto) 0.0 0.0-0.1 10^3/uL Erythrocyte Sedimentation Rate 9 0-30 MM/HR Sodium Level 140 135-145 MMOL/L Potassium Level 3.9 3.6-5.0 MMOL/L Chloride Level 106 98-107 MMOL/L Carbon Dioxide Level 23 21-32 MMOL/L Anion Gap 11 5-14 MMOL/L Blood Urea Nitrogen 13 7-18 MG/DL Creatinine 1.05 0.60-1.30 MG/DL Estimat Glomerular Filtration Rate > 60 BUN/Creatinine Ratio 12 Glucose Level 102 70-105 MG/DL Calcium Level 9.4 8.5-10.1 MG/DL Corrected Calcium 9.2 8.5-10.1 MG/DL Total Bilirubin 0.7 0.1-1.0 MG/DL Aspartate Amino Transf (AST/SGOT) 22 5-34 U/L Alanine Aminotransferase (ALT/SGPT) 42 0-55 U/L Alkaline Phosphatase 49 40-136 U/L C-Reactive Protein High Sensitivity 1.17 H 0.00-0.50 MG/DL Total Protein 7.1 6.4-8.2 GM/DL Albumin 4.2 3.2-4.5 GM/DL My Orders Orders - SUZANNE ALCOCER APRN Cbc With Automated Diff (09/19/20 18:08) Hs C Reactive Protein (09/19/20 18:08) Erythrocyte Sedimentation Rate (09/19/20 18:08) Comprehensive Metabolic Panel (09/19/20 18:08) Ed Iv/Invasive Line Start (09/19/20 18:08) Ketorolac Injection (Toradol Injection) (09/19/20 18:15) Prochlorperazine Injection (Compazine In (09/19/20 18:15) Diphenhydramine Injection (Benadryl Inje (09/19/20 18:15) Ns Iv 1000 Ml (Sodium Chloride 0.9%) (09/19/20 18:15) Ct Head Wo (09/19/20 18:10) Dexamethasone Injection (Decadron Inje (09/19/20 19:30) Ceftriaxone (Rocephin) (09/19/20 19:30) Rx-Oxycodone/Apap 5-325 Mg (Rx-Percocet (09/19/20 19:30) Fentanyl Inj (Sublimaze Injection) (09/19/20 20:00) Medications Given in ED Current Medications Medications Dose Ordered Sig/Shruthi Route Start Time Stop Time Status Last Admin Dose Admin Ceftriaxone Sodium 1000 mg/ Sterile Water 10 ml @ 200 mls/hr ONCE ONCE IV 09/19/20 19:30 09/19/20 19:32 DC 09/19/20 19:25 200 MLS/HR Dexamethasone Sodium Phosphate 10 mg ONCE ONCE IV 09/19/20 19:30 09/19/20 19:31 DC 09/19/20 19:25 10 MG Diphenhydramine HCl 25 mg ONCE ONCE IVP 09/19/20 18:15 09/19/20 18:16 DC 09/19/20 18:24 25 MG Ketorolac Tromethamine 30 mg ONCE ONCE IVP 09/19/20 18:15 09/19/20 18:16 DC 09/19/20 18:24 30 MG Oxycodone/ Acetaminophen 1 ea Q4H PRN PO 09/19/20 19:30 09/19/20 19:25 1 EA Prochlorperazine Edisylate 10 mg ONCE ONCE IV 09/19/20 18:15 09/19/20 18:16 DC 09/19/20 18:24 10 MG Vital Signs/I&O 09/19/20 09/19/20 17:09 18:24 Temp 36.8 36.8 Pulse 87 Resp 20 B/P (MAP) 143/92 (109) Blood Pressure Mean: 109 Departure Communication (Admissions) Family Conversation Headache is better though not gone. I did write him an order for an outpatient MRI brain and cervical spine. They plan to use [facility] as a coupon rather than going through insurance. NAME: [facility] REC#: [id number] PT STATUS: REG ER : 1965 PHYSICIAN: SUZANNE ALCOCER APRN ADMIT DATE: 09/19/20/ER Draft Date of Exam:09/19/20 CT HEAD WO PROCEDURE: CT head without contrast. TECHNIQUE: Multiple contiguous axial images were obtained through the brain without the use of intravenous contrast. Auto Exposure Controls were utilized during the CT exam to meet ALARA standards for radiation dose reduction. DATE: September 19, 2020. COMPARISON: CT head August 22, 2014. INDICATION: 45-year-old male, headache for three days. FINDINGS: The ventricles and cerebral spinal fluid spaces are of normal size and configuration for the patient's age. There is no mass effect or midline shift. There is no acute intracranial hemorrhage. There is no abnormal extra-axial fluid collection. There is mucosal thickening of the right maxillary sinus as well as wall thickening of the bony brennan of the right maxillary sinus. There are also similar findings in the sphenoid sinuses. There is also complete nonspecific opacification in the right sphenoid sinus. There is no air-fluid level in the paranasal sinuses. The mastoid air cells and middle ears are well-aerated, bilaterally. There is a sinolith in the right sphenoid sinus. IMPRESSION: 1. No identified acute intracranial abnormality. 2. Findings of chronic sinusitis without specific evidence of acute sinusitis. There is nonspecific complete opacification within the right sphenoid sinus as well as areas of high attenuation likely reflecting a sialolith. Dictated on workstation # [id number] Dict: 09/19/20 1839 Trans: 09/19/20 1844 [facility] [id number] Interpreted by: ANDREW ASHFORD MD Electronically signed by: Impression Primary Impression: Headache Additional Impression: Sinusitis Disposition: 01 HOME, SELF-CARE Condition: Stable Departure-Patient Inst. Decision time for Depature: 18:53 Referrals: JOSÉ MIGUEL LAINEZ MD (PCP/Family) Primary Care Physician Patient Instructions: Sinusitis, Adult ED Scripts Oxycodone HCl/Acetaminophen (Oxycodone-Acetaminophen 5-325) 1 Each Tablet 1 EACH PO Q4H PRN for PAIN-MODERATE MDD 6 for 3 Days, #10 TAB 0 Refills Prov: SUZANNE ALCOCER APRN 09/19/20 Prednisone (Prednisone) 20 Mg Tab 40 MG PO DAILY, #6 TAB 0 Refills Prov: SUZANNE ALCOCER APRN 09/19/20 Amoxicillin/Potassium Clav (Augmentin 875-125 Tablet) 1 Each Tablet 1 EACH PO BID, #14 TAB 0 Refills Prov: SUZANNE ALCOCER APRN 09/19/20 Copy Copies To 1: JOSÉ MIGUEL LAINEZ MD, PETER J APRN Sep 19, 2020 18:14
[2020-09-19] MEDS ORDERED: KETOROLAC 30 MG/ML VIAL IVP ONE (18:15)
[2020-09-19] MEDS ORDERED: NS IV 1000 ML 1,000 ML IV SCH (18:15)
[2020-09-19] MEDS ORDERED: diphenhydrAMINE 50 MG/ML INJ (BENADRYL) IVP ONE (18:15)
[2020-09-19] MEDS ORDERED: PROCHLORPERAZINE 10 MG/2ML INJ (COMPAZINE) IV ONE (18:15)
[2020-09-19 18:19] LABS: BASOPHILS % (AUTO) 0 % (0-10); EOSINOPHILS # (AUTO) 0.1 10^3/uL (0.0-0.3); EOSINOPHILS % (AUTO) 1 % (0-10); HEMATOCRIT 46 % (40-54); HEMOGLOBIN 15.5 g/dL (13.3-17.7); LYMPHOCYTES # (AUTO) 1.9 10^3/uL (1.0-4.0); LYMPHOCYTES % (AUTO) 22 % (12-44); MEAN CORPUSCULAR HEMOGLOBIN 31 pg (25-34); MEAN CORPUSCULAR HGB CONC 34 g/dL (32-36); MEAN CORPUSCULAR VOLUME 92 fL (80-99); MEAN PLATELET VOLUME 9.8 fL (9.0-12.2); MONOCYTES # (AUTO) 0.8 10^3/uL (0.0-1.0); MONOCYTES % (AUTO) 9 % (0-12); NEUTROPHILS % (AUTO) 67 % (42-75); PLATELET COUNT 252 10^3/uL (130-400); WHITE BLOOD COUNT 8.9 10^3/uL (4.3-11.0)
--- NOTE | 2020-09-19 18:46 | Diagnostic Imaging Report ---
PROCEDURE: CT head without contrast. TECHNIQUE: Multiple contiguous axial images were obtained through the brain without the use of intravenous contrast. Auto Exposure Controls were utilized during the CT exam to meet ALARA standards for radiation dose reduction. DATE: September 19, 2020. COMPARISON: CT head August 22, 2014. INDICATION: 45-year-old male, headache for three days. FINDINGS: The ventricles and cerebral spinal fluid spaces are of normal size and configuration for the patient's age. There is no mass effect or midline shift. There is no acute intracranial hemorrhage. There is no abnormal extra-axial fluid collection. There is mucosal thickening of the right maxillary sinus as well as wall thickening of the bony brennan of the right maxillary sinus. There are also similar findings in the sphenoid sinuses. There is also complete nonspecific opacification in the right sphenoid sinus. There is no air-fluid level in the paranasal sinuses. The mastoid air cells and middle ears are well-aerated, bilaterally. There is a sinolith in the right sphenoid sinus. IMPRESSION: 1. No identified acute intracranial abnormality. 2. Findings of chronic sinusitis without specific evidence of acute sinusitis. There is nonspecific complete opacification within the right sphenoid sinus as well as areas of high attenuation likely reflecting a sialolith. Dictated by: Dictated on workstation # [id number]
[2020-09-19 18:49] LABS: ERYTHROCYTE SEDIMENTATION RATE 9 MM/HR (0-30)
[2020-09-19 18:53] LABS: ALBUMIN 4.2 GM/DL (3.2-4.5); CHLORIDE 106 MMOL/L (98-107); POTASSIUM 3.9 MMOL/L (3.6-5.0); SODIUM 140 MMOL/L (135-145)
[2020-09-19 18:54] LABS: CALCIUM 9.4 MG/DL (8.5-10.1)
[2020-09-19 18:55] LABS: GLUCOSE 102 MG/DL (70-105); TOTAL PROTEIN 7.1 GM/DL (6.4-8.2)
[2020-09-19 18:56] LABS: CARBON DIOXIDE 23 MMOL/L (21-32)
[2020-09-19 18:57] LABS: BILIRUBIN,TOTAL 0.7 MG/DL (0.1-1.0)
[2020-09-19 18:59] LABS: ALKALINE PHOSPHATASE 49 U/L (40-136); CREATININE SERUM 1.05 MG/DL (0.60-1.30); GFR ESTIMATED > 60
[2020-09-19 19:00] LABS: BUN/CREATININE RATIO 12
[2020-09-19 19:02] LABS: ALANINE AMINOTRANSFERASE 42 U/L (0-55)
[2020-09-19] MEDS ORDERED: RX-OXYCODONE/APAP 5-325 MG #4 TAB PK PO PRN (19:30)
[2020-09-19] MEDS ORDERED: cefTRIAXone 1,000 MG in WATER (STERILE) FOR INJECTION 10 ML IV ONE (19:30)
[2020-09-19] MEDS ORDERED: AMOX-358 PO (19:47)
[2020-09-19] MEDS ORDERED: PRD20T PO (19:47)
[2020-09-19] MEDS ORDERED: fentaNYL INJ 100 MCG/2 ML AMP IVP ONE (20:00)
[2020-09-19] MEDS ORDERED: OXYC1TAB11 PO (20:08)
[2020-09-19 20:21] VITALS: BP 141/90
== END 2020-09-19 20:20 | disposition home or self-care (01) ==
LOC: EDUNIT# 16:24 → ER 16:26
DX: J32.9 Chronic sinusitis, unspecified (principal); I10 Essential (primary) hypertension; E78.00 Pure hypercholesterolemia, unspecified; Z79.01 Long term (current) use of anticoagulants; Z79.82 Long term (current) use of aspirin; Z79.899 Other long term (current) drug therapy
CPT/HCPCS: 36415; 70450; 80053; 85025; 85652; 86141

== ENCOUNTER 2020-10-04 09:00 | Outpatient (RCR) | payer BC ==
[2020-09-26 13:28] VITALS: BP 152/90
[2020-09-26] MEDS: LEVOFLOXACIN 500 MG/D5W 100 ML (PRE-MIX) IV SCH (14:49)
[2020-09-27] MEDS: LEVOFLOXACIN 500 MG/D5W 100 ML (PRE-MIX) IV SCH (12:17)
[2020-09-28 12:15] VITALS: BP 129/71
[2020-09-28] MEDS: LEVOFLOXACIN 500 MG/D5W 100 ML (PRE-MIX) IV SCH (12:23)
[2020-09-29] MEDS: LEVOFLOXACIN 500 MG/D5W 100 ML (PRE-MIX) IV SCH (12:05)
[2020-09-29 13:20] VITALS: BP 136/87
[2020-09-30] MEDS: LEVOFLOXACIN 500 MG/D5W 100 ML (PRE-MIX) IV SCH (12:23)
[2020-09-30 13:17] VITALS: BP 142/76
[2020-10-01] MEDS: LEVOFLOXACIN 500 MG/D5W 100 ML (PRE-MIX) IV SCH (12:02)
[2020-10-01 12:12] VITALS: BP 122/81
[2020-10-02] MEDS: LEVOFLOXACIN 500 MG/D5W 100 ML (PRE-MIX) IV SCH (11:55)
[2020-10-02 12:00] VITALS: BP 132/88
[2020-10-03 09:00] VITALS: BP 133/72
[2020-10-03] MEDS: LEVOFLOXACIN 500 MG/D5W 100 ML (PRE-MIX) IV SCH (09:20)
[~2020-10-04] VITALS: Wt 136.1 kg
[~2020-10-04 09:00] MED LIST changes: +AMOX-358 PO; +OXYC1TAB11 PO; +PRD20T PO
[2020-10-04] MEDS: LEVOFLOXACIN 500 MG/D5W 100 ML (PRE-MIX) IV SCH (09:14)
[2020-10-04 10:05] VITALS: BP 137/84
[2020-10-05] MEDS: LEVOFLOXACIN 500 MG/D5W 100 ML (PRE-MIX) IV SCH (09:01)
[2020-10-05 10:00] VITALS: BP 134/80
== END 2020-10-05 10:00 | disposition home or self-care (01) ==
LOC: 4THo 09:00
PROVIDERS: ATTEND Otolaryngology Otolaryngology/Facial Plastic Surgery
DX: Z01.89 Encounter for other specified special examinations (principal)
CPT/HCPCS: 36410; 76937; 96365; C1751; 96374; 99211

== ENCOUNTER → 2020-10-15 | Outpatient (CLI) | payer BC ==
--- NOTE | 2020-10-15 15:17 | Diagnostic Imaging Report ---
CLINICAL INDICATION: Post-treatment acute sinusitis with recurrent headache. EXAM: Axial CT scan of the maxillofacial structures without IV contrast. Coronal and sagittal reformations were performed. Auto Exposure Controls were utilized during the CT exam to meet ALARA standards for radiation dose reduction. COMPARISON: None. FINDINGS: PARANASAL SINUSES: FRONTAL: Hypoplastic, but clear in the frontal recess regions. ETHMOID: There is a small amount of consolidation involving the posterior right ethmoid sinus region, which is continuous with the sphenoid sinus region. MAXILLARY: There is mild mucosal thickening involving the right maxillary sinus and minimal mucosal thickening involving the left maxillary sinus. SPHENOID: There is near-complete consolidation of the sphenoid sinus with minimal air seen on left side. There is an area of high density within the anterior right ethmoid sinus region, which may represent inspissated secretions or fungal elements. This is in the region of the sphenoethmoidal recess and may represent obstruction of the region. There is chronic bony thickening and sclerosis of the sphenoid sinus region related to chronic sinusitis changes. OTHER PARANASAL SINUS FINDINGS: None. NASAL SEPTUM: There is roughly 3 mm of rightward nasal septal deviation. VISUALIZED TEMPORAL BONE STRUCTURES: Unremarkable. BONY STRUCTURES: Unremarkable. EXTRACRANIAL SOFT TISSUE/ ORBITS: Unremarkable. IMPRESSION: 1: There is paranasal sinus disease with the sphenoid sinus affected the most. There is a small area of high density within the anterior right ethmoid sinus region, which may represent inspissated secretions or fungal elements. There are also chronic bony sinusitis changes involving the sphenoid sinus. There may also be obstruction of the right sphenoethmoid recess. 2: There is mild rightward nasal septal deviation. Dictated by: Dictated on workstation # [id number]
== END ==
LOC: RAD 10:15
PROVIDERS: ATTEND Otolaryngology Otolaryngology/Facial Plastic Surgery
DX: J34.2 Deviated nasal septum (principal); J32.3 Chronic sphenoidal sinusitis; J32.2 Chronic ethmoidal sinusitis
CPT/HCPCS: 70486

== ENCOUNTER 2022-10-26 18:11 | Emergency (ER) | payer BC ==
[~2022-10-26] VITALS: Ht 172.7 cm; Wt 142.9 kg
[~2022-10-26 18:11] MED LIST changes: -LOSA100T57 PO; +LOSA100T58 PO
[2022-10-26 18:47] VITALS: BP 112/79
--- NOTE | 2022-10-26 19:40 | ED Fall/Injury ---
General Chief Complaint: Trauma-Non Activation Stated Complaint: SHOULDER ARM PAIN/FALL Nursing Triage Note: PT AMBULATE TO ROOM FT2 WITHOUT DIFFICULTY WITH C/O RIGHT ARM/SHOULDER AND LEFT UPPER BACK/RIB PAIN AFTER TRIPPING OVER A CURB TODAY. PT DENIES LOC, HEAD/NECK PAIN. PT REPORTS HITTING RIGHT SIDE OF FACE ON GLASS WINDOW ON FRONT OF A BUSINESS. ABRASIIONS NOTED TO RIGHT KNEE AND RIGHT ARM. Source: patient, family () Exam Limitations: no limitations History of Present Illness Date Seen by Provider: Oct 26, 2022 Time Seen by Provider: 19:28 Initial Comments Patient is a 57-year-old male with a history of anticoagulation status postcardiac stents and angioplasty who presents to the emergency room after a trip and fall. He was walking in [address] [employer] when he tripped on the curb and fell against the building. He did hit the right side of his head. No loss of consciousness. He fell on the right side of his body, right shoulder and right knee. He is on Eliquis. He complains of pain with range of motion to the right shoulder. No numbness. Denies weakness in the hand. Has never injured this shoulder before. Is currently being worked up for a labral tear in the right hip by Dr. Oseguera at [place]. He denies headache, nausea, vision change. No chest pain or shortness of breath. He does have some discomfort inferior to the left shoulder blade when he takes a deep breath in the rib cage area. Occurred: just prior to arrival Severity: moderate Injuries/Pain Location: upper extremity, chest (left posterior chest), lower extremity (right knee) Context: tripped Loss of Consciousness: no loss of consciousness Modifying Factors: Improves With Immobilization; Worse With Movement Associated Symptoms (Fall): Denies Symptoms Allergies and Home Medications Allergies Coded Allergies: codeine (Verified Allergy, Severe, HIVES (Pt has received Lortab in the past), 06/22/17) Patient Home Medication List Home Medication List Reviewed: Yes Amoxicillin/Potassium Clav (Augmentin 875-125 Tablet) 1 Each Tablet, 1 EACH PO BID Prescribed by: SUZANNE ALCOCER on 09/19/201946 Aspirin (Aspirin EC) 81 Mg Tablet., 81 MG PO DAILY, (Reported) Entered as Reported by: WILLA WRIGHT on 01/20/17 1348 Atorvastatin Calcium (Atorvastatin Calcium) 80 Mg Tablet, 40 MG PO HS, (Reported) Entered as Reported by: REBECA ROBERTS on 06/17/17926 Clopidogrel Bisulfate (Clopidogrel) 75 Mg Tablet, 75 MG PO DAILY, (Reported) Entered as Reported by: REBECA ROBERTS on 06/17/17926 Hydrocodone/Acetaminophen (Hydrocodone-Acetamin 5-325 mg) 5 Mg-325 Mg Tablet, 1 TAB PO Q6H PRN for PAIN-MODERATE (5-7) Prescribed by: JONG WILKINS on 10/26/222048 Losartan Potassium (Losartan Potassium) 100 Mg Tablet, 100 MG PO DAILY, (Reported) Entered as Reported by: WILLA WRIGHT on 01/20/17 134 Metoprolol Succinate (Metoprolol Succinate) 25 Mg Tab.er.24h, 25 MG PO BID, (Reported) Entered as Reported by: REBECA ROBERTS on 06/17/17926 Oxycodone HCl/Acetaminophen (Oxycodone-Acetaminophen 5-325) 1 Each Tablet, 1 EACH PO Q4H PRN for PAIN-MODERATE Prescribed by: SUZANNE ALCOCER on 09/19/202007 Prednisone (Prednisone) 20 Mg Tab, 40 MG PO DAILY Prescribed by: SUZANNE ALCOCER on 09/19/20 194 Review of Systems Review of Systems Constitutional: see HPI Eyes: No Symptoms Reported Ears, Nose, Mouth, Throat: no symptoms reported Respiratory: other (left posterior back/rib pain) Cardiovascular: no symptoms reported Gastrointestinal: no symptoms reported Genitourinary: no symptoms reported Musculoskeletal: joint pain (right shoulder, elbow and knee) Skin: other (abrasions) Past Kskofrl-Pwmake-Yrkbzu Hx Patient Social History Tobacco Use?: No Smoking Status: Never a Smoker Smokeless Tobacco Frequency: Never a User Use of E-Cig and/or Vaping dev: No Use of E-Cig and/or Vaping David: Never a User Substance use?: No Alcohol Use?: No Pt feels they are or have been: No Immunizations Up To Date Tetanus Booster (TDap): Unknown PED Vaccines UTD: Yes Seasonal Allergies Seasonal Allergies: No Past Medical History Surgeries: Yes (HERNIA X2, ESOPHAGUS STRETCHING) Coronary Stent Respiratory: Yes (CPAP) Sleep Apnea Currently Using CPAP: Yes Cardiac: Yes (STENTS) High Cholesterol, Hypertension Neurological: No Genitourinary: No Gastrointestinal: Yes Gastroesophageal Reflux Musculoskeletal: No Endocrine: No HEENT: No Cancer: No Psychosocial: No Integumentary: No Blood Disorders: No Adverse Reaction/Blood Tranf: No Physical Exam Vital Signs Vital Signs - First Documented 10/26/22 18:47 Temp 37.0 Pulse 100 Resp 18 B/P (MAP) 112/79 (90) O2 Delivery Room Air Capillary Refill : Less Than 3 Seconds Height, Weight, BMI Height: 5'8.00" Weight: 280lbs. 0.0oz. 127.700059ay; 47.00 BMI Method:Stated General Appearance: WD/WN, no apparent distress HEENT: PERRL/EOMI, other (slight bluish discoloration of both TM's no discrete hemotympanum) Neck: non-tender, full range of motion Cardiovascular: regular rate, rhythm Respiratory: lungs clear, normal breath sounds, no respiratory distress, no accessory muscle use, other (tender to touch left posterior ribs about . no crepitance; no overlying abrasion or ecchymoses) Gastrointestinal: non tender, soft Back: normal inspection Extremities: other (decreased ROM right shoulder due to pain - held in ADDUCTION and internal rotation. distal NVI. small <0.5cm superficial laceration over the olecranin - no active bleeding. No bony tenderness to the elbow. 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 no active bleeding.) Progress/Results/Core Measures Results/Orders My Orders Orders - JONG WILKINS MD Dipht/Pertuss(Acell)/Tet Adult (Dipht/Pe (10/26/22 19:45) Hydrocodone/Apap 10/325 Tablet (Hydrocod (10/26/22 19:45) Chest 1 View, Ap/Pa Only (10/26/22 19:36) Shoulder, Right, 3 Views (10/26/22 19:36) Humerus, Right, 2 Views (10/26/22 19:36) Ct Head Wo (10/26/22 20:08) Rx-Hydrocodone/Apap 5-325 Mg (Rx-Vicodin (10/26/22 21:00) Medications Given in ED Vital Signs/I&O 10/26/22 18:47 Temp 37.0 Pulse 100 Resp 18 B/P (MAP) 112/79 (90) O2 Delivery Room Air Blood Pressure Mean: 90 Progress Progress Note : Time: 20:45 Progress Note Patient seen and evaluated by me. Evaluation today includes physical exam, chest x-ray, right humerus x-ray, right shoulder x-ray and CT head without contrast. Pertinent physical exam findings well-developed well-nourished male in no acute distress. He has no focal neurologic deficits, normal mentation, normal vital signs. He has evidence of abrasion to the right lateral knee, small superficial laceration to the dorsum of the right elbow over the olec ranon. None of these areas have any evidence of active bleeding. He has also tenderness to palpation over the left lower posterior ribs. He has tenderness to palpation over the right proximal humerus and shoulder girdle. Decreased range of motion to the right upper extremity due to pain. He is neurovascularly intact to the right upper extremity. Differential diagnosis based on history and physical exam humerus fracture, shoulder dislocation, clavicle fracture, rib fracture, intracranial hemorrhage. X-rays independently reviewed by me. They are read by radiology. His head CT is negative for any acute intracranial hemorrhage/contusion or subdural hematoma. Right shoulder x-ray shows a fracture of the greater tuberosity of the humerus. No other fractures appreciated on dedicated humerus film. Chest x-ray shows no evidence of obvious rib fracture, pneumothorax, effusion. Pat ient is on chronic anticoagulation with a history of cardiac stents. He is counseled on head injury precautions. Treated with pain medications. Wounds are cleaned and dressed appropriately. He is placed in a right upper extremity arm sling and referred to orthopedics. Consideration for labs, coags, CBC however history and physical do not support the need. [facility] all findings have been reviewed with both the patient and his . All questions are sought and answered. Return precautions provided in both verbal and written format. Patient is discharged in stable condition with pain medications for home. Diagnostic Imaging Diagonstic Imaging: Xray Comments [facility], [place] NAME: [facility] REC#: [id number] PT STATUS: REG ER : 1965 PHYSICIAN: JONG WILKINS MD ADMIT DATE: 10/26/22/ER Draft Date of Exam:10/26/22 SHOULDER, RIGHT, 3 VIEWS Indication: Right shoulder pain. Time of Exam: 7:50 PM 3 views of the right shoulder were obtained. There is a fracture of the greater tuberosity of the proximal humerus. Glenohumeral and acromioclavicular alignment are normal. Acromiohumeral space is normal. IMPRESSION: Acute fracture of the right greater tuberosity. Dictated on workstation # [id number] Dict: 10/26/221958 Trans: 10/26/222000 [facility] [id number] Interpreted by: LUPIS WALL MD Electronically signed by: Diagonstic Imaging: Xray Comments [facility] [place] [facility] REC[facility] [id number] PT STATUS: REG ER : 1965 PHYSICIAN: JONG WILKINS MD ADMIT DATE: 10/26/22/ER Signed Date of Exam:10/26/22 HUMERUS, RIGHT, 2 VIEWS EXAMINATION: Right humerus radiograph EXAM DATE: 10/26/2022 7:59 PM COMPARISON: None available. HISTORY: Right arm pain TECHNIQUE: 2 views FINDINGS: There is a mildly displaced fracture of the proximal right humerus along the greater tuberosity. No dislocation or other destructive osseous process. The joint spaces are normal. The soft tissues are normal. IMPRESSION: 1. Acute mildly displaced fracture of the proximal right humerus at the greater tuberosity. Dictated by: Dictated on workstation # [id number] Dict: 10/26/221999 Trans: 10/26/222001 [facility] [id number] Interpreted by: RAVINDRA BONILLA DO Electronically signed by: RAVINDRA BONILLA DO 10/26/222001 Diagonstic Imaging: Xray Plain Films/CT/US/NM/MRI: chest Comments [facility] [place] [place] NAME: [facility] REC#: [id number] PT STATUS: REG ER : 1965 PHYSICIAN: JONG WILKINS MD ADMIT DATE: 10/26/22/ER Signed Date of Exam:10/26/22 CHEST 1 VIEW, AP/PA ONLY EXAMINATION: Chest 1 view HISTORY: Chest pain after a fall. COMPARISON: 08/03/2017 FINDINGS: Heart size and pulmonary vasculature are normal. The lungs are clear without consolidation, pleural effusion, or pneumothorax. Degenerative changes of the thoracic spine. Osseous structures are otherwise intact. IMPRESSION: 1. No acute radiographic abnormality in the chest. Dictated by: Dictated on workstation # [id number] Dict: 10/26/221958 Trans: 10/26/222001 [facility] [id number] Interpreted by: RAVINDRA BONILLA DO Electronically signed by: RAVINDRA BONILLA DO 10/26/222001 Diagonstic Imaging: CT Comments [facility] [place] NAME: [facility] REC#: [id number] PT STATUS: REG ER : 1965 PHYSICIAN: JONG WILKINS MD ADMIT DATE: 10/26/22/ER Draft Date of Exam:10/26/22 CT HEAD WO EXAMINATION: CT head without contrast. TECHNIQUE: Multiple contiguous axial images were obtained through the brain without the use of intravenous contrast. All CT scans use one or more of the following dose optimizing techniques: automated exposure control, MA and/or KvP adjustment based on patient size and exam type or iterative reconstruction. HISTORY: Right-sided head pain after a fall. COMPARISON: 09/19/2020 FINDINGS: The ventricles and sulci are normal. No abnormal attenuation of brain parenchyma is present. No acute intracranial hemorrhage or abnormal extra-axial fluid collections are present. Calcification of the intracranial ICAs. No hyperdense vessel. The calvarium is intact. The mastoid air cells are clear. The visualized paranasal sinuses are clear. The orbits are normal. IMPRESSION: 1. No acute intracranial abnormality. Dictated on workstation # [id number] Dict: 10/26/222036 Trans: 10/26/222040 [facility] [id number] Interpreted by: RAVINDRA BONILLA DO Electronically signed by: Departure Impression Primary Impression: Shoulder fracture, right Qualified Codes: S42.91XA - Fracture of right shoulder girdle, part unspecified, initial encounter for closed fracture Additional Impressions: Abrasion of right knee Qualified Codes: S80.211A - Abrasion, right knee, initial encounter Laceration of right elbow Qualified Codes: S51.011A - Laceration without foreign body of right elbow, initial encounter Chronic anticoagulation Disposition: HOME, SELF-CARE Condition: Stable Departure-Patient Inst. Decision time for Depature: 20:49 Referrals: MARY LAINEZ MD (PCP/Family) Primary Care Physician Add. Discharge Instructions: Ice pack to the right shoulder over the next 12 to 24 hours. 20 minutes at a time every 2-3 hours. Hydrocodone 1 tablet every 6 hours with an additional extra strength Tylenol. Hydrocodone can make you sleepy, do not drive and take this medication. Also it can cause constipation, you should consider a daily stool softener while having to take the hydrocodone. Please call your orthopedic provider of choice tomorrow for a follow-up appointment. Wear the sling to keep the right shoulder immobile. You may even wear it at night while sleeping. If you develop severe headache, nausea vomiting or any other emergent, concerning symptoms please return to the emergency department for reevaluation. Wash the abrasions with a mild soap and water, you can apply a little triple antibiotic ointment for 2 or 3 days with a bandage. Scripts Hydrocodone/Acetaminophen (Hydrocodone-Acetamin 5-325 mg) 5 Mg-325 Mg Tablet 1 TAB PO Q6H PRN for PAIN-MODERATE (5-7), #20 TAB Prov: JONG WILKINS MD 10/26/22 Copy Copies To 1: MARY LAINEZ MD, KATHRYN M MD Oct 26, 2022 19:40
[2022-10-26] MEDS ORDERED: HYDROcodone/ACETAMINOPHEN 10/325 TABLET PO ONE (19:45)
[2022-10-26] MEDS ORDERED: Tetanus/Diphtheria/Pertussis (Acell) ADULT Vaccine 0.5 ML IM ONE (19:45)
--- NOTE | 2022-10-26 20:01 | Diagnostic Imaging Report ---
Indication: Right shoulder pain. Time of Exam: 7:50 PM 3 views of the right shoulder were obtained. There is a fracture of the greater tuberosity of the proximal humerus. Glenohumeral and acromioclavicular alignment are normal. Acromiohumeral space is normal. IMPRESSION: Acute fracture of the right greater tuberosity. Dictated by: Dictated on workstation # [id number]
--- NOTE | 2022-10-26 20:01 | Diagnostic Imaging Report ---
EXAMINATION: Chest 1 view HISTORY: Chest pain after a fall. COMPARISON: 08/03/2017 FINDINGS: Heart size and pulmonary vasculature are normal. The lungs are clear without consolidation, pleural effusion, or pneumothorax. Degenerative changes of the thoracic spine. Osseous structures are otherwise intact. IMPRESSION: 1. No acute radiographic abnormality in the chest. Dictated by: Dictated on workstation # [id number]
--- NOTE | 2022-10-26 20:02 | Diagnostic Imaging Report ---
EXAMINATION: Right humerus radiograph EXAM DATE: 10/26/2022 7:59 PM COMPARISON: None available. HISTORY: Right arm pain TECHNIQUE: 2 views FINDINGS: There is a mildly displaced fracture of the proximal right humerus along the greater tuberosity. No dislocation or other destructive osseous process. The joint spaces are normal. The soft tissues are normal. IMPRESSION: 1. Acute mildly displaced fracture of the proximal right humerus at the greater tuberosity. Dictated by: Dictated on workstation # [id number]
--- NOTE | 2022-10-26 20:41 | Diagnostic Imaging Report ---
EXAMINATION: CT head without contrast. TECHNIQUE: Multiple contiguous axial images were obtained through the brain without the use of intravenous contrast. All CT scans use one or more of the following dose optimizing techniques: automated exposure control, MA and/or KvP adjustment based on patient size and exam type or iterative reconstruction. HISTORY: Right-sided head pain after a fall. COMPARISON: 09/19/2020 FINDINGS: The ventricles and sulci are normal. No abnormal attenuation of brain parenchyma is present. No acute intracranial hemorrhage or abnormal extra-axial fluid collections are present. Calcification of the intracranial ICAs. No hyperdense vessel. The calvarium is intact. The mastoid air cells are clear. The visualized paranasal sinuses are clear. The orbits are normal. IMPRESSION: 1. No acute intracranial abnormality. Dictated by: Dictated on workstation # [id number]
[2022-10-26] MEDS ORDERED: ACHD5005 PO (20:48)
== END 2022-10-26 21:11 | disposition home or self-care (01) ==
LOC: EDUNIT# 18:11 → ER 18:16
DX: S42.251A Displaced fracture of greater tuberosity of right humerus, initial encounter for closed fracture (principal); S51.011A Laceration without foreign body of right elbow, initial encounter; S80.211A Abrasion, right knee, initial encounter; R07.81 Pleurodynia; G47.30 Sleep apnea, unspecified; Z99.89 Dependence on other enabling machines and devices; Z23 Encounter for immunization; Z79.01 Long term (current) use of anticoagulants; Z95.5 Presence of coronary angioplasty implant and graft; Z88.5 Allergy status to narcotic agent; Z28.310 Unvaccinated for COVID-19; W01.110A Fall on same level from slipping, tripping and stumbling with subsequent striking against sharp glass, initial encounter; Y93.01 Activity, walking, marching and hiking
CPT/HCPCS: 70450; 71045; 73030; 73060; 90715